=== PATIENT | male | born 1990 | race Caucasian/White ===

== ENCOUNTER 2017-01-06 23:46 | Emergency (ER) | payer SELFPAY ==
[~2017-01-06] VITALS: Ht 180.3 cm; Wt 92.4 kg
[~2017-01-06 23:46] MED LIST: IBUP800T23 PO; METH750T2 PO
[2017-01-06 23:54] VITALS: BP 133/82; PULSE 88; RESP 14; TEMP 98.1; O2SAT 98
[2017-01-07] MEDS ORDERED: IBUP800T23 PO (00:16)
[2017-01-07 00:35] VITALS: BP 177/109
--- NOTE | 2017-01-07 00:42 | PD ---
HPI Chief Complaint: Cold / Flu Symptoms Time Seen by Provider: 00:27 Travel History International Travel<30 days: No Contact w/Intl Traveler<30days: No Traveled to known affect area: No History of Present Illness HPI 26-year-old male presents to the emergency department for complaint of sore throat fever and cough. Patient states he's had respiratory illness symptoms for the past 2-3 days but today symptoms worsened and noted temperature of 10 1 F at work. Patient took 800 mg of ibuprofen around 5 PM. Patient denies other concerns or complaints. Patient denies any chronic medical conditions. Patient is status post tympanostomy in childhood. The patient rates history of pain 7/10 intensity with swallowing. No stridor no hoarseness. PFSH Past Medical History Narrative Medical ADHD and bipolar disorder anxiety depression; tympanostomy; tobacco use, prior substance use; nursing notes reviewed ADD: Yes ADHD: Yes Arthritis: No Asthma: Yes Autoimmune Disease: No Blood Disorders: No Bipolar Disorder: Yes Anxiety: Yes Depression: Yes Heart Rhythm Problems: No Cardiovascular Problems: No High Cholesterol: No Chest Pain: No Congestive Heart Failure: No COPD: No Cerebrovascular Accident: No Diminished Hearing: No Gastrointestinal Disorders: No GERD: No Genitourinary: No Headaches: No Hiatal Hernia: No Hypertension: No Kidney Stones: No Musculoskeletal: No Neurologic: No Psychiatric: Yes (SUBSTANCE ABUSE in past) Reproductive: No Respiratory: Yes Immunizations Current: Yes Migraines: No Renal Failure: No Schizophrenia: Yes Seizures: No Sickle Cell Disease: No Sleep Apnea: No Ulcer: No Tetanus Vaccination: < 5 Years Influenza Vaccination: No PNEUMOCCOCAL Vaccine (Year): 2 Past Surgical History Abdominal Surgery: No Cardiac Surgery: No Ear Surgery: Yes (TUBES IN EARS AGE 6) Endocrine Surgery: No Eye Surgery: No Genitourinary Surgery: No Gynecologic Surgery: No Neurologic Surgery: No Oral Surgery: No Thoracic Surgery: No Tympanostomy Tube: Yes Other Surgery: Yes (PE TUBES INSERTED WHEN HE WAS [age] YRS. OLD) Social History Alcohol Use: No Tobacco Use: Yes (1/2 ppd) Substance Use: No (HX CRACK COCAINE (DENIES USE 03/21/16)) Allergies-Medications (Allergen,Severity, Reaction): Coded Allergies: Penicillin (Verified Allergy, Mild, Hives, 01/07/17) Per pt, he is allergic to PCN. Reported Meds & Prescriptions Reported Meds & Active Scripts Active Zithromax Z-Anil (Azithromycin) 250 Mg Dspk 250 Mg PO DIRECTED 500 MG (2 tabs) day 1, then 1 tab days 2-5. Reported Ibuprofen 800 Mg Tab 800 Mg PO Q6HR PRN Review of Systems Except as stated in HPI: all other systems reviewed are Neg General / Constitutional: Positive: Fever HENT: Positive: Congestion Cardiovascular: No: Chest Pain or Discomfort Respiratory: Positive: Cough, No: Shortness of Breath Gastrointestinal: No: Vomiting, Abdominal Pain Genitourinary: No: Flank Pain Musculoskeletal: No: Myalgias, Arthralgias Skin: No Rash Neurologic: No: Weakness Psychiatric: No: Anxiety Hematologic/Lymphatic: No: Lymph Node Enlargement Physical Exam Narrative GENERAL: Well-developed well-nourished male in no acute distress no respiratory distress; no stridor or hoarseness. SKIN: Warm and dry. HEAD: Normocephalic. EYES: No scleral icterus. No injection or drainage. ENT: Airway is patent, mucous membranes moist, tonsillar edema with exudative change; tympanic membranes no redness dullness or loss of landmarks. NECK: Supple, trachea midline. No JVD or lymphadenopathy. CARDIOVASCULAR: Regular rate and rhythm without murmurs, gallops, or rubs. RESPIRATORY: Breath sounds equal bilaterally. No accessory muscle use. GASTROINTESTINAL: Abdomen soft, non-tender, nondistended. MUSCULOSKELETAL: No cyanosis, or edema. BACK: Nontender without obvious deformity. No CVA tenderness. Data Data Last Documented VS Vital Signs Date Time Temp Pulse Resp B/P Pulse Ox O2 Delivery O2 Flow Rate FiO2 01/07/17 00:35 177/109 01/06/17 23:54 98.1 88 14 98 Orders Group A Rapid Strep Screen (01/07/17 00:27) Strep Culture (Group A) (01/07/17 00:38) Azithromycin (Zithromax) (01/07/17 01:15) Ibuprofen (Motrin) (01/07/17 01:15) MDM Medical Decision Making Medical Screen Exam Complete: Yes Emergency Medical Condition: Yes Medical Record Reviewed: Yes Interpretation(s) RSA: negative Differential Diagnosis Upper respiratory infection, tonsillitis, pharyngitis, sinusitis, bronchitis, pneumonia Narrative Course Triage vital signs and normal range; patient with abnormal tonsil exam rapid strep antigen and specimen collected Patient informed of negative strep test; patient with febrile illness with tonsillitis will start on oral antibiotic patient given first dose of antibiotic along with weight-based ibuprofen in the emergency department. Patient is stable for outpatient management. Diagnosis Primary Impression: Tonsillitis Referrals: Primary Care Physician call for appointment Patient Instructions: General Instructions Departure Forms: Tests/Procedures, Work Release Special Instructions: No work times one day Additional Instructions: Complete course of antibiotic as prescribed Take acetaminophen/Tylenol every 4 hours as needed for fever 100.4F or greater Take ibuprofen 600 mg as often as every 6 hours or ibuprofen 800 mg as often as every 8 hours for fever 100.4F or greater or for pain associated with inflammation Return to the emergency department for any concerns or change condition No work times one day Follow-up with primary care provider May use [id number] Chloraseptic spray, lozenges, or warm salt water gargles as needed for symptomatic relief Med/Other Pt SpecificInfo: Prescription(s) given Scripts Azithromycin (Zithromax Z-Anil)250 Mg [id number] Mg PO DIRECTED #1 DSPK Ref 0 500 MG (2 tabs) day 1, then 1 tab days 2-5. Prov:Lizette Harmon MD 01/07/17 Disposition: 01 DISCHARGE HOME Condition: Stable Lizette Harmon MD Jan 07, 2017 00:42
[2017-01-07] MEDS ORDERED: ZITHTAB PO (01:11)
[2017-01-07] MEDS ORDERED: IBUPROFEN 800 MG TAB PO ONE (01:15)
[2017-01-07] MEDS ORDERED: AZITHROMYCIN 250 MG TAB PO ONE (01:15)
== END 2017-01-07 01:37 | disposition home or self-care (01) ==
LOC: PHED 23:46
DX: J03.90 Acute tonsillitis, unspecified (principal); J45.909 Unspecified asthma, uncomplicated; F17.210 Nicotine dependence, cigarettes, uncomplicated
CPT/HCPCS: 87081; 87880; 99283

== ENCOUNTER 2017-03-18 12:44 | Emergency (ER) | payer SELFPAY ==
[~2017-03-18] VITALS: Ht 180.3 cm; Wt 90.0 kg
[~2017-03-18 12:44] MED LIST changes: -METH750T2 PO; +ZITHTAB PO
[2017-03-18 12:48] VITALS: BP 129/69; PULSE 82; RESP 18; TEMP 98.3; O2SAT 100
[2017-03-18 13:11] VITALS: O2SAT 99
[2017-03-18] MEDS ORDERED: SODIUM CHLORIDE 0.9% FLUSH 10 ML FLUSH IVF PRN (13:15)
[2017-03-18] MEDS ORDERED: KETOROLAC TROMETHAMINE 30 MG/ML (IVP) VIAL IV PUSH ONE (13:15)
[2017-03-18] MEDS ORDERED: SODIUM CHLOR 0.9% 1000 ML INJ 1,000 ML IV ONE ×2 (13:15→14:45)
--- NOTE | 2017-03-18 13:17 | PD ---
HPI Chief Complaint: Chest Pain Time Seen by Provider: 12:59 Travel History International Travel<30 days: No Contact w/Intl Traveler<30days: No Traveled to known affect area: No History of Present Illness HPI Patient is 26-year-old male who presents to emergency room with complaints of chest pain. Patient reports that for the past few days, he has been having right-sided sharp stabbing chest pain. Reports that pain is located to his lateral right ribs, reports that pain is sharp and stabbing in nature. Patient reports that when he has to symptoms, his symptoms last for about 15 minutes and then resolve on its own. Reports that symptoms are exacerbated by taking deep breaths. Patient reports that nothing makes his chest pain better, reports shortness of breath with this chest pain. Denies any diaphoresis, nausea or vomiting or palpitations. Patient denies history of coronary artery disease, FL, hypertension, hyperlipidemia. Denies any drug abuse, denies any recent use of cocaine, denies early family history of coronary artery disease. Patient denies any recent illness. Patient reports that his symptoms are also exacerbated today as he works in a very hot factory - reports that it was hard for him to catch his breath today. Denies history of PE/DVT. Patient is a smoker PFS Past Medical History ADD: Yes ADHD: Yes Arthritis: No Asthma: Yes Autoimmune Disease: No Blood Disorders: No Bipolar Disorder: Yes Anxiety: Yes Depression: Yes Heart Rhythm Problems: No Cardiovascular Problems: No High Cholesterol: No Chest Pain: No Congestive Heart Failure: No COPD: No Cerebrovascular Accident: No Diminished Hearing: No Gastrointestinal Disorders: No GERD: No Genitourinary: No Headaches: No Hiatal Hernia: No Hypertension: No Kidney Stones: No Musculoskeletal: No Neurologic: No Psychiatric: Yes (SUBSTANCE ABUSE in past) Reproductive: No Respiratory: Yes Immunizations Current: Yes Migraines: No Renal Failure: No Schizophrenia: Yes Seizures: No Sickle Cell Disease: No Sleep Apnea: No Ulcer: No PNEUMOCCOCAL Vaccine (Year): 2 Past Surgical History Abdominal Surgery: No Cardiac Surgery: No Ear Surgery: Yes (TUBES IN EARS AGE 6) Endocrine Surgery: No Eye Surgery: No Genitourinary Surgery: No Gynecologic Surgery: No Neurologic Surgery: No Oral Surgery: No Thoracic Surgery: No Tympanostomy Tube: Yes Other Surgery: Yes (PE TUBES INSERTED WHEN HE WAS [age] YRS. OLD) Social History Alcohol Use: No Tobacco Use: Yes (1/2 ppd) Substance Use: No (HX CRACK COCAINE (DENIES USE 03/21/16)) Allergies-Medications (Allergen,Severity, Reaction): Coded Allergies: penicillin G (Verified Allergy, Mild, Hives, 03/18/17) Per pt, he is allergic to PCN. Reported Meds & Prescriptions Reported Meds & Active Scripts Active Ibuprofen 600 Mg Tab 600 Mg PO Q6H PRN Review of Systems General / Constitutional: No: Fever, Chills Eyes: No: Visual changes HENT: No: Headaches Cardiovascular: Positive: Chest Pain or Discomfort, Palpitations, Tachycardia Respiratory: Positive: Shortness of Breath, No: Wheezing, Sneezing Gastrointestinal: No: Abdominal Pain Genitourinary: No: Dysuria Musculoskeletal: No: Pain Skin: No Rash Neurologic: No: Weakness Psychiatric: No: Depression Endocrine: No: Polydipsia Hematologic/Lymphatic: No: Easy Bruising Physical Exam Narrative GENERAL: mild distress SKIN: Focused skin assessment warm/dry. HEAD: Atraumatic. Normocephalic. EYES: Pupils equal and round. No scleral icterus. No injection or drainage. ENT: No nasal bleeding or discharge. Mucous membranes pink and moist. NECK: Trachea midline. No JVD. CARDIOVASCULAR: Regular rate and rhythm. No murmur appreciated. RESPIRATORY: No accessory muscle use. Clear to auscultation. Breath sounds equal bilaterally. GASTROINTESTINAL: Abdomen soft, non-tender, nondistended. Hepatic and splenic margins not palpable. MUSCULOSKELETAL: No obvious deformities. No clubbing. No cyanosis. No edema. NEUROLOGICAL: Awake and alert. No obvious cranial nerve deficits. Motor grossly within normal limits. Normal speech. PSYCHIATRIC: Appropriate mood and affect; insight and judgment normal. Data Data Last Documented VS Vital Signs Date Time Temp Pulse Resp B/P Pulse Ox O2 Delivery O2 Flow Rate FiO2 03/18/17 14:50 61 16 128/74 98 Room Air 03/18/17 12:48 98.3 Orders Ckmb (Isoenzyme) Profile (03/18/17 13:05) Complete Blood Count With Diff (03/18/17 13:05) Comprehensive Metabolic Panel (03/18/17 13:05) D-Dimer (03/18/17 13:05) Magnesium (Mg) (03/18/17 13:05) Prothrombin Time / Inr (Pt) (03/18/17 13:05) Act Partial Throm Time (Ptt) (03/18/17 13:05) Troponin I (03/18/17 13:05) Chest, Single Ap (03/18/17 13:05) Ecg Monitoring (03/18/17 13:05) Iv Access Insert/Monitor (03/18/17 13:05) Oximetry (03/18/17 13:05) Sodium Chloride 0.9% Flush (Ns Flush) (03/18/17 13:15) Drug Screen, Random Urine (03/18/17 13:05) Ketorolac Inj (Toradol Inj) (03/18/17 13:15) Sodium Chlor 0.9% 1000 Ml Inj (Ns 1000 M (03/18/17 13:15) Thyroid Stimulating Hormone (03/18/17 13:05) CKMB (03/18/17 12:58) CKMB% (03/18/17 12:58) Electrocardiogram (03/18/17 ) Sodium Chlor 0.9% 1000 Ml Inj (Ns 1000 M (03/18/17 14:45) Acetaminophen (Tylenol) (03/18/17 14:45) Labs Laboratory Tests Test 03/18/17 03/18/17 12:58 13:50 White Blood Count 5.9 TH/MM3 Red Blood Count 4.48 MIL/MM3 Hemoglobin 13.9 GM/DL Hematocrit 40.7 % Mean Corpuscular Volume 90.7 FL Mean Corpuscular Hemoglobin 31.1 PG Mean Corpuscular Hemoglobin 34.3 % Concent Red Cell Distribution Width 11.9 % Platelet Count 245 TH/MM3 Mean Platelet Volume 7.9 FL Neutrophils (%) (Auto) 47.6 % Lymphocytes (%) (Auto) 40.2 % Monocytes (%) (Auto) 10.7 % Eosinophils (%) (Auto) 1.4 % Basophils (%) (Auto) 0.1 % Neutrophils # (Auto) 2.8 TH/MM3 Lymphocytes # (Auto) 2.4 TH/MM3 Monocytes # (Auto) 0.6 TH/MM3 Eosinophils # (Auto) 0.1 TH/MM3 Basophils # (Auto) 0.0 TH/MM3 CBC Comment DIFF FINAL Differential Comment Prothrombin Time 11.1 SEC Prothromb Time International 1.0 RATIO Ratio Activated Partial 30.5 SEC Thromboplast Time D-Dimer Quantitative (PE/DVT) 0.23 MG/L FEU Sodium Level 140 MEQ/L Potassium Level 3.7 MEQ/L Chloride Level 106 MEQ/L Carbon Dioxide Level 26.1 MEQ/L Anion Gap 8 MEQ/L Blood Urea Nitrogen 17 MG/DL Creatinine 0.99 MG/DL Estimat Glomerular Filtration 92 ML/MIN Rate Random Glucose 88 MG/DL Calcium Level 8.7 MG/DL Magnesium Level 2.1 MG/DL Total Bilirubin 0.9 MG/DL Aspartate Amino Transf 29 U/L (AST/SGOT) Alanine Aminotransferase 32 U/L (ALT/SGPT) Alkaline Phosphatase 108 U/L Total Creatine Kinase 378 U/L Creatine Kinase MB 5.1 NG/ML Creatine Kinase MB % 1.3 % Troponin I LESS THAN 0.02 NG/ML Total Protein 7.5 GM/DL Albumin 4.1 GM/DL Thyroid Stimulating Hormone 1.660 uIU/ML 3rd Gen Urine Opiates Screen NEG Urine Barbiturates Screen NEG Urine Amphetamines Screen NEG Urine Benzodiazepines Screen NEG Urine Cocaine Screen NEG Urine Cannabinoids Screen NEG [facility] Medical Decision Making Medical Screen Exam Complete: Yes Emergency Medical Condition: Yes Interpretation(s) EKG at 1256: NSR at 79bpm, qt/qtc: 353/387, no acute st or t wave changes repeat ekg at 1438: Sinus rodolfo at 56bpm, qt/qtc: 409/401, no acute st or t wave changes Vital Signs Date Time Temp Pulse Resp B/P Pulse Ox O2 Delivery O2 Flow Rate FiO2 03/18/17 13:03 74 98 Room Air 03/18/17 12:48 98.3 82 18 129/69 100 Laboratory Tests Test 03/18/17 03/18/17 12:58 13:50 White Blood Count 5.9 TH/MM3 (4.0-11.0) Red Blood Count 4.48 MIL/MM3 (4.50-5.90) Hemoglobin 13.9 GM/DL (13.0-17.0) Hematocrit 40.7 % (39.0-51.0) Mean Corpuscular Volume 90.7 FL (80.0-100.0) Mean Corpuscular Hemoglobin 31.1 PG (27.0-34.0) Mean Corpuscular Hemoglobin 34.3 % Concent (32.0-36.0) Red Cell Distribution Width 11.9 % (11.6-17.2) Platelet Count 245 TH/MM3 (150-450) Mean Platelet Volume 7.9 FL (7.0-11.0) Neutrophils (%) (Auto) 47.6 % (16.0-70.0) Lymphocytes (%) (Auto) 40.2 % (9.0-44.0) Monocytes (%) (Auto) 10.7 % (0.0-8.0) Eosinophils (%) (Auto) 1.4 % (0.0-4.0) Basophils (%) (Auto) 0.1 % (0.0-2.0) Neutrophils # (Auto) 2.8 TH/MM3 (1.8-7.7) Lymphocytes # (Auto) 2.4 TH/MM3 (1.0-4.8) Monocytes # (Auto) 0.6 TH/MM3 (0-0.9) Eosinophils # (Auto) 0.1 TH/MM3 (0-0.4) Basophils # (Auto) 0.0 TH/MM3 (0-0.2) CBC Comment DIFF FINAL Differential Comment Prothrombin Time 11.1 SEC (9.8-11.6) Prothromb Time International 1.0 RATIO Ratio Activated Partial 30.5 SEC Thromboplast Time (24.3-30.1) D-Dimer Quantitative (PE/DVT) 0.23 MG/L FEU (0.00-0.50) Sodium Level 140 MEQ/L (136-145) Potassium Level 3.7 MEQ/L (3.5-5.1) Chloride Level 106 MEQ/L (98-107) Carbon Dioxide Level 26.1 MEQ/L (21.0-32.0) Anion Gap 8 MEQ/L (5-15) Blood Urea Nitrogen 17 MG/DL (7-18) Creatinine 0.99 MG/DL (0.60-1.30) Estimat Glomerular Filtration 92 ML/MIN (>89) Rate Random Glucose 88 MG/DL (74-106) Calcium Level 8.7 MG/DL (8.5-10.1) Magnesium Level 2.1 MG/DL (1.5-2.5) Total Bilirubin 0.9 MG/DL (0.2-1.0) Aspartate Amino Transf 29 U/L (15-37) (AST/SGOT) Alanine Aminotransferase 32 U/L (12-78) (ALT/SGPT) Alkaline Phosphatase 108 U/L (45-117) Total Creatine Kinase 378 U/L (39-308) Creatine Kinase MB 5.1 NG/ML (0.5-3.6) Creatine Kinase MB % 1.3 % (0.0-4.0) Troponin I LESS THAN 0.02 NG/ML (0.02-0.05) Total Protein 7.5 GM/DL (6.4-8.2) Albumin 4.1 GM/DL (3.4-5.0) Thyroid Stimulating Hormone 1.660 uIU/ML 3rd Gen (0.358-3.740) Urine Opiates Screen NEG (NEG) Urine Barbiturates Screen NEG (NEG) Urine Amphetamines Screen NEG (NEG) Urine Benzodiazepines Screen NEG (NEG) Urine Cocaine Screen NEG (NEG) Urine Cannabinoids Screen NEG (NEG) Last Impressions Chest X-Ray 03/18/17 1305 Signed Impressions: Service Date/Time: Saturday, March 18, 2017 13:15 - CONCLUSION: 1. Mild cardiomegaly. 2. No focal pulmonary infiltrate or pulmonary vascular congestion. Ryan Hoffman MD Differential Diagnosis Differential includes ACS, arrhythmia, PE, costochondritis, endocarditis, pericarditis, electrolyte abnormality, pneumothorax, rhabdomyolysis Narrative Course Patient is a 26-year-old male who presents to emergency with complaints of chest pain. Patient reports that chest pain has been intermittent in nature for the past few days, reports the pain is worse in his right lateral chest and is exacerbated by deep breath. Patient reports that chest pain is pleuritic in nature. Patient was placed on a bolt sawyer upon arrival to the emergency room. EKG was obtained, patient with no acute ST-T wave changes on his EKG. Lab work including one set of cardiac enzymes ordered - 1 set of cardiac enzymes ordered to evaluate for infective etiology of chest pain including but not limited to endocarditis/pericarditis, it was not ordered to evaluate for ACS. Xray of chest ordered to evaluate for possible pneumothorax. D-dimer ordered to evaluate possible PE though patient is low risk for PE Plan to treat patient's chest pain with IV Toradol, will continue to monitor on a bolt sawyer. 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 Mild cardiomegaly. 2. No focal pulmonary infiltrate or pulmonary vascular congestion. Ryan Hoffman MD Patient feeling better at this time, repeat EKG with no acute ST-T wave changes. Patient with most likely costochondritis as well as rhabdomyolysis as there is no air conditioner at his job and he works in a "very hot factory." Encouraged patient to drink plenty of fluids, he will follow up with his primary care doctor and will return to emergency room as needed. Diagnosis Primary Impression: Chest pain Additional Impressions: Costochondritis, acute Rhabdomyolysis Patient Instructions: General Instructions Additional Instructions: Please follow up with your primary care doctor Please return to ER as needed or if symptoms worsen or persist Please stop smoking cigarettes Med/Other Pt SpecificInfo: Prescription(s) given Scripts Ibuprofen 600 Mg [id number] Mg PO Q6H PRN (Pain/Inflammation) #40 TAB Ref 0 Prov:Aster Iverson DO 03/18/17 Aster Iverson DO Mar 18, 2017 13:17
[2017-03-18 13:24] LABS: AUTOMATED NEUTROPHIL # 2.8 TH/MM3 (1.8-7.7); BASOPHIL % 0.1 % (0.0-2.0); EOSINOPHIL # 0.1 TH/MM3 (0-0.4); EOSINOPHIL % 1.4 % (0.0-4.0); HEMATOCRIT 40.7 % (39.0-51.0); HEMO FLAGS DIFF FINAL; LYMPH % 40.2 % (9.0-44.0); LYMPHOCYTE # 2.4 TH/MM3 (1.0-4.8); MEAN CELL VOLUME 90.7 FL (80.0-100.0); MEAN CORPUSCULAR HEMOGLOBIN 31.1 PG (27.0-34.0); MEAN CORPUSCULAR HGB CONC 34.3 % (32.0-36.0); MONO % 10.7 % (0.0-8.0); NEUT % 47.6 % (16.0-70.0); PLATELET COUNT 245 TH/MM3 (150-450); RED BLOOD COUNT 4.48 MIL/MM3 (4.50-5.90); RED CELL DISTRIBUTION WIDTH 11.9 % (11.6-17.2); WHITE BLOOD COUNT 5.9 TH/MM3 (4.0-11.0)
[2017-03-18 13:33] LABS: CHLORIDE 106 MEQ/L (98-107); POTASSIUM 3.7 MEQ/L (3.5-5.1); SODIUM (NA) 140 MEQ/L (136-145)
[2017-03-18 13:36] LABS: ANION GAP 8 MEQ/L (5-15); BICARBONATE 26.1 MEQ/L (21.0-32.0); BLOOD UREA NITROGEN 17 MG/DL (7-18); MAGNESIUM 2.1 MG/DL (1.5-2.5)
[2017-03-18 13:39] LABS: ALT (GPT) 32 U/L (12-78); APTT (PATIENT) 30.5 SEC (24.3-30.1); PROTHROMBIN TIME - PATIENT 11.1 SEC (9.8-11.6)
[2017-03-18 13:40] LABS: AST (GOT) 29 U/L (15-37); GLOMERULAR FILTRATION RATE 92 ML/MIN (>89)
[2017-03-18 13:41] LABS: TOTAL BILIRUBIN ADULT 0.9 MG/DL (0.2-1.0)
[2017-03-18 13:42] LABS: ALKALINE PHOSPHATASE 108 U/L (45-117); CREATINE KINASE 378 U/L (39-308)
[2017-03-18] MEDS ORDERED: IBUP-232 PO (13:51)
[2017-03-18 13:54] LABS: CKMB 5.1 NG/ML (0.5-3.6)
--- NOTE | 2017-03-18 14:15 | RADRPT ---
EXAM DATE/TIME: 03/18/2017 13:15 [facility] COMPARISON: CHEST SINGLE AP, January 13, 2016, 5:01. INDICATIONS : Chest pain, right arm numbness. MEDICAL HISTORY : Asthma. UTI. SURGICAL HISTORY : Tympanostomy tubes. ENCOUNTER: Initial ACUITY: 3 days PAIN SCORE: 10/10 LOCATION: Right chest FINDINGS: The heart remains mildly enlarged. The pulmonary vascular pattern is normal. The lungs are clear. CONCLUSION: 1. Mild cardiomegaly. 2. No focal pulmonary infiltrate or pulmonary vascular congestion. Ryan Hoffman MD on March 18, 2017 at 14:12 Board Certified Radiologist. This report was verified electronically.
[2017-03-18] MEDS ORDERED: ACETAMINOPHEN 325 MG TAB PO ONE (14:45)
[2017-03-18 14:50] VITALS: BP 128/74; PULSE 61; RESP 16; O2SAT 98
[2017-03-18 16:04] VITALS: BP 135/70
--- NOTE | 2017-03-20 08:56 | EKG ---
Date Performed: 03/18/2017 Time Performed: 14:38:01 PTAGE: 26 years EKG: SINUS BRADYCARDIA BORDERLINE ECG PREVIOUS TRACING : 03/18/2017 12.56 Compared to prior tracing no significant change DOCTOR: Lawson Lam Interpretating Date/Time 03/20/2017 08:53:23
--- NOTE | 2017-03-20 09:01 | EKG ---
Date Performed: 03/18/2017 Time Performed: 12:56:48 PTAGE: 26 years EKG: Sinus rhythm WITH SINUS ARRHYTHMIA NORMAL ECG INTERPRETATION BASED ON A DEFAULT AGE OF 40 YEARS PREVIOUS TRACING : 01/13/2016 04.43 Compared to prior tracing no significant change DOCTOR: Lawson Lam Interpretating Date/Time 03/20/2017 08:56:37
== END 2017-03-18 16:12 | disposition home or self-care (01) ==
LOC: PHED 12:44
DX: R07.9 Chest pain, unspecified (principal); M94.0 Chondrocostal junction syndrome [Tietze]; M62.82 Rhabdomyolysis; I51.7 Cardiomegaly; F31.9 Bipolar disorder, unspecified; F20.9 Schizophrenia, unspecified; F17.210 Nicotine dependence, cigarettes, uncomplicated; R20.0 Anesthesia of skin; R00.1 Bradycardia, unspecified
CPT/HCPCS: 71010; 80053; 80307; 82550; 82552; 83735; 84443; 84484; 85025; 85379; 85610; 85730; 93005; 96374; 99285; J1885; J7030

== ENCOUNTER 2017-04-23 20:48 | Emergency (ER) | payer OTHER ==
[~2017-04-23] VITALS: Ht 177.8 cm; Wt 100.0 kg
[~2017-04-23 20:48] MED LIST changes: +IBUP-232 PO; -IBUP800T23 PO; -ZITHTAB PO
[2017-04-23 21:22] VITALS: BP 128/90; PULSE 93; RESP 16; TEMP 98.1; O2SAT 98
[2017-04-23 21:48] VITALS: BP 123/67; PULSE 78; RESP 16
[2017-04-23 22:30] LABS: AUTOMATED NEUTROPHIL # 4.9 TH/MM3 (1.8-7.7); BASOPHIL % 0.3 % (0.0-2.0); EOSINOPHIL # 0.1 TH/MM3 (0-0.4); HEMATOCRIT 42.6 % (39.0-51.0); HEMO FLAGS DIFF FINAL; LYMPH % 32.1 % (9.0-44.0); LYMPHOCYTE # 2.8 TH/MM3 (1.0-4.8); MEAN CORPUSCULAR HEMOGLOBIN 31.3 PG (27.0-34.0); MONO % 10.1 % (0.0-8.0); NEUT % 56.5 % (16.0-70.0); PLATELET COUNT 274 TH/MM3 (150-450); RED BLOOD COUNT 4.63 MIL/MM3 (4.50-5.90); WHITE BLOOD COUNT 8.7 TH/MM3 (4.0-11.0)
[2017-04-23 22:36] LABS: ALT (GPT) 42 U/L (12-78); ANION GAP 8 MEQ/L (5-15); AST (GOT) 42 U/L (15-37); BICARBONATE 26.4 MEQ/L (21.0-32.0); BLOOD UREA NITROGEN 12 MG/DL (7-18); CHLORIDE 105 MEQ/L (98-107); GLOMERULAR FILTRATION RATE 98 ML/MIN (>89); POTASSIUM 3.6 MEQ/L (3.5-5.1); SODIUM (NA) 139 MEQ/L (136-145)
[2017-04-23 22:37] LABS: ALKALINE PHOSPHATASE 82 U/L (45-117); TOTAL BILIRUBIN ADULT 1.9 MG/DL (0.2-1.0)
[2017-04-23] MEDS ORDERED: LORazepam 1 MG TAB PO ONE (22:45)
[2017-04-23 22:48] LABS: ACETAMINOPHEN LESS THAN 2.0 MCG/ML (10.0-30.0); ALCOHOL LESS THAN 3 MG/DL (0-5)
[2017-04-23] MEDS ORDERED: RISP4TAB41 PO (22:49)
[2017-04-23] MEDS ORDERED: CLON1 PO (22:49)
--- NOTE | 2017-04-23 22:52 | PD ---
HPI Chief Complaint: Psychiatric Symptoms Time Seen by Provider: 21:45 Travel History International Travel<30 days: No Contact w/Intl Traveler<30days: No Traveled to known affect area: No History of Present Illness HPI 27-year-old male that presents to the ED for evaluation of psychiatric evaluation. Patient was Cali acted by police after apparently he was found to be incoherent my police. Patient stated that he took Lilo and she wanted to kill himself by running into traffic. Patient states that he does not remember this. Per patient he does not do drugs. She does have a history of substance abuse from her medical records. He states that he is a history of schizophrenia and he supposed to be in medications for it. Per patient sometimes he does see things that are not there. He denies any injuries. No head injuries. No cuts. No other medical issues. Patient takes no medications at this time. Patient was brought here by police under a cali act. PFSH Past Medical History ADD: Yes ADHD: Yes Arthritis: No Asthma: Yes Autoimmune Disease: No Blood Disorders: No Bipolar Disorder: Yes Anxiety: Yes Depression: Yes Heart Rhythm Problems: No Cardiovascular Problems: No High Cholesterol: No Chest Pain: No Congestive Heart Failure: No COPD: No Cerebrovascular Accident: No Diminished Hearing: No Gastrointestinal Disorders: No GERD: No Genitourinary: No Headaches: No Hiatal Hernia: No Kidney Stones: No Musculoskeletal: No Neurologic: No Psychiatric: Yes (SUBSTANCE ABUSE in past) Reproductive: No Respiratory: Yes Immunizations Current: Yes Migraines: No Renal Failure: No Schizophrenia: Yes Seizures: No Sickle Cell Disease: No Sleep Apnea: No Ulcer: No Tetanus Vaccination: < 5 Years Influenza Vaccination: No PNEUMOCCOCAL Vaccine (Year): 2 Past Surgical History Ear Surgery: Yes (TUBES IN EARS AGE 6) Tympanostomy Tube: Yes Other Surgery: Yes (PE TUBES INSERTED WHEN HE WAS [age] YRS. OLD) Social History Alcohol Use: No Tobacco Use: Yes (08/05 pk) Substance Use: No (HX CRACK COCAINE (DENIES USE 03/21/16)) Allergies-Medications (Allergen,Severity, Reaction): Coded Allergies: penicillin G (Verified Allergy, Mild, Hives, 04/23/17) Per pt, he is allergic to PCN. Reported Meds & Prescriptions Reported Meds & Active Scripts Active Reported Klonopin (Clonazepam) 1 Mg Tab 1 Mg PO DAILY Risperdal (Risperidone) 4 Mg Tab 4 Mg PO HS Review of Systems Except as stated in HPI: all other systems reviewed are Neg Physical Exam Narrative GENERAL: SKIN: Warm and dry. HEAD: Atraumatic. Normocephalic. EYES: Pupils equal and round. No scleral icterus. No injection or drainage. ENT: No nasal bleeding or discharge. Mucous membranes pink and moist. Tongue is midline. No uvula deviation. NECK: Trachea midline. No JVD. CARDIOVASCULAR: Regular rate and rhythm. No murmurs, S3, S4. RESPIRATORY: No accessory muscle use. Clear to auscultation. Breath sounds equal bilaterally. GASTROINTESTINAL: Abdomen soft, non-tender, nondistended. Hepatic and splenic margins not palpable. MUSCULOSKELETAL: Extremities without clubbing, cyanosis, or edema. No obvious deformities. Full range of motion of the upper and lower extremities bilaterally. 2+ pulses bilaterally. Patient has a brace to the left wrist. NEUROLOGICAL: Awake and alert. No obvious cranial nerve deficits. Motor grossly within normal limits. Five out of 5 muscle strength in the arms and legs. Normal speech. PSYCHIATRIC: Anxious mood and affect; insight and judgment normal. Data Data Last Documented VS Vital Signs Date Time Temp Pulse Resp B/P (MAP) Pulse Ox O2 Delivery O2 Flow Rate FiO2 04/23/17 21:48 78 16 123/67 (85) 04/23/17 21:22 98.1 98 Orders Orders Complete Blood Count With Diff (04/23/17 21:43) Comprehensive Metabolic Panel (04/23/17 21:43) Urinalysis - C+S If Indicated (04/23/17 21:43) Psych Screen (04/23/17 21:43) Drug Screen, Random Urine (04/23/17 21:43) Alcohol (Ethanol) (04/23/17 21:43) Salicylates (Aspirin) (04/23/17 21:43) Tylenol (Acetaminophen) (04/23/17 21:43) ^ Sitter (04/23/17 21:48) Lorazepam (Ativan) (04/23/17 22:45) Labs Laboratory Tests Test 04/23/17 22:00 White Blood Count 8.7 TH/MM3 Red Blood Count 4.63 MIL/MM3 Hemoglobin 14.5 GM/DL Hematocrit 42.6 % Mean Corpuscular Volume 92.0 FL Mean Corpuscular Hemoglobin 31.3 PG Mean Corpuscular Hemoglobin Concent 34.0 % Red Cell Distribution Width 13.0 % Platelet Count 274 TH/MM3 Mean Platelet Volume 7.7 FL Neutrophils (%) (Auto) 56.5 % Lymphocytes (%) (Auto) 32.1 % Monocytes (%) (Auto) 10.1 % Eosinophils (%) (Auto) 1.0 % Basophils (%) (Auto) 0.3 % Neutrophils # (Auto) 4.9 TH/MM3 Lymphocytes # (Auto) 2.8 TH/MM3 Monocytes # (Auto) 0.9 TH/MM3 Eosinophils # (Auto) 0.1 TH/MM3 Basophils # (Auto) 0.0 TH/MM3 CBC Comment DIFF FINAL Differential Comment Blood Urea Nitrogen 12 MG/DL Creatinine 0.93 MG/DL Random Glucose 90 MG/DL Total Protein 7.7 GM/DL Albumin 4.3 GM/DL Calcium Level 8.9 MG/DL Alkaline Phosphatase 82 U/L Aspartate Amino Transf (AST/SGOT) 42 U/L Alanine Aminotransferase (ALT/SGPT) 42 U/L Total Bilirubin 1.9 MG/DL Sodium Level 139 MEQ/L Potassium Level 3.6 MEQ/L Chloride Level 105 MEQ/L Carbon Dioxide Level 26.4 MEQ/L Anion Gap 8 MEQ/L Estimat Glomerular Filtration Rate 98 ML/MIN Salicylates Level LESS THAN 1.7 MG/DL Acetaminophen Level LESS THAN 2.0 MCG/ML Ethyl Alcohol Level LESS THAN 3 MG/DL MDM Medical Decision Making Medical Screen Exam Complete: Yes Emergency Medical Condition: Yes Medical Record Reviewed: Yes Interpretation(s) CBC & BMP Diagram 04/23/17 22:00 Total Protein 7.7, Albumin 4.3, Calcium Level 8.9, Alkaline Phosphatase 82, Aspartate Amino Transf (AST/SGOT) 42 H, Alanine Aminotransferase (ALT/SGPT) 42, Total Bilirubin 1.9 H tox negative Differential Diagnosis Depression versus suicidal ideation versus anxiety versus adjustment disorder versus mood disorder versus bipolar disorder versus schizophrenia versus paranoid disorder versus psychosis versus substance abuse versus alcohol abuse versus alcohol induced psychosis versus homicidality addition versus cutting versus personality disorder Narrative Course 27-year-old male that presents to the ED for eval is an psychiatric illness. No sign of acute medical distress. Labs were drawn. Labs were essentially unremarkable. Patient will be medically clear. Okay to be seen by psych. There maximization patient states that he doesn't really remember what happened. He does state that he did took something but he initially told us that he took Mully but he states that he doesn't now. Patient does have a known history of substance abuse in her previous records. At this time patient was medically clear. Okay to be seen by psych. Mental health screening was discussed with the patient. Diagnosis Primary Impression: Drug-induced mood disorder Heriberto Carrillo Apr 23, 2017 22:52
[2017-04-23 23:06] VITALS: BP 128/82; PULSE 94; RESP 16; TEMP 98.3; O2SAT 99
[2017-04-24 06:00] VITALS: BP 101/59; PULSE 62; RESP 18; TEMP 98.5; O2SAT 99
[2017-04-24 08:36] LABS: BLOOD, URINE NEG (NEG); COMMENT (UR) CULT NOT INDICATED; CULTURE IF INDICATED CULT NOT INDICATED; GLUCOSE,URINE NEG (NEG); KETONE, URINE NEG (NEG); MUCUS URINE FEW /lpf (OCC); NITRITE,URINE NEG (NEG); URINE COLOR YELLOW (YELLW/STRAW)
--- NOTE | 2017-04-24 12:35 | PD ---
History of Present Illness Chief Complaint: Psychiatric Symptoms Time Seen by Provider: 12:15 Travel History International Travel<30 Days: No Contact w/Intl Traveler<30days: No Known affected area: No Legal Status Legal Status: Cali Act Cali Act Signed By: Emmanuel Echevraria History of Present Illness: History of Present Illness HPI 27-year-old male with history of substance use disorder that presents to the ED under a Cali act by police after apparently he was found to be incoherent by the police .The Cali act also alleges that he tried to walk in front of traffic Patient state that he took Mansi but that he does not remember any of the allegations on the Cali act. The patient was monitored in [facility] and presented no behavioral dysregulations and no suicidality. EMR reviewed. He has had several visits to ED for substance related issues. Current toxicology is negative for substances. Patient seen with nurse Laura. he is alert, oriented, cooperative. Speech is clear and logical. He denies experiencing any hallucinations, no delusions and no paranoia. He denies any suicidal or homicidal ideation, intent or plan. Admits to using Mansi prior to coming to hospital but states " It was supposed to be fun." he is currently not on psychiatric medications but reports he has been treated at [facility]. He is requesting discharge as he has to be present in court at 2:p m today. PFSH Past Medical History ADD: Yes ADHD: Yes Arthritis: No Asthma: Yes Autoimmune Disease: No Blood Disorders: No Bipolar Disorder: Yes Anxiety: Yes Depression: Yes Heart Rhythm Problems: No Cardiovascular Problems: No High Cholesterol: No Chest Pain: No Congestive Heart Failure: No COPD: No Cerebrovascular Accident: No Diminished Hearing: No Gastrointestinal Disorders: No GERD: No Genitourinary: No Headaches: No Hiatal Hernia: No Kidney Stones: No Musculoskeletal: No Neurologic: No Psychiatric: Yes (SUBSTANCE ABUSE in past) Reproductive: No Respiratory: Yes Immunizations Current: Yes Migraines: No Renal Failure: No Schizophrenia: Yes Seizures: No Sickle Cell Disease: No Sleep Apnea: No Ulcer: No Tetanus Vaccination: < 5 Years Influenza Vaccination: No PNEUMOCCOCAL Vaccine (Year): 2 Past Surgical History Ear Surgery: Yes (TUBES IN EARS AGE 6) Tympanostomy Tube: Yes Other Surgery: Yes (PE TUBES INSERTED WHEN HE WAS [age] YRS. OLD) Psychiatric History Psychiatric History Hx Psychiatric Treatment: HX: ADHD AND BIPOLAR DISORDER History of Inpatient Treatment: No Guns or firearms in home: No Social History . Lives with his . Unemployed Hx Alcohol Use: No Hx Tobacco Use: Yes (1 08/05 pk) Hx Substance Use: Yes Substance Use Type: Alcohol, Crack, Amphetamines-Stimulants, Prescription Medications, Benzos (Valium,Xanax), Cocaine Other Substances Used: BEGAN USING SUBSTANCES A TEENAGER. HX OF ALCOHOL, BENZOS , K2. Hx of Substance Use Treatment: No Family Psychiatric History Negative Allergies-Medications (Allergen,Severity, Reaction): Coded Allergies: penicillin G (Verified Allergy, Mild, Hives, 04/23/17) Per pt, he is allergic to PCN. Reported Meds & Prescriptions Reported Meds & Active Scripts Active Reported Klonopin (Clonazepam) 1 Mg Tab 1 Mg PO DAILY Risperdal (Risperidone) 4 Mg Tab 4 Mg PO HS Review of Systems Except as stated in HPI: all other systems reviewed are Neg Exam Alert: Yes [place]: Person (ox4) Mood: Calm Affect: Appropriate Speech: Clear, Logical Eye Contact: Normal Memory Intact: Comment (not impaired) Hallucinations: Other (Negative) Delusions: No Suicidal: Ideation (Negative) Homicidal: Ideation (Denies any) Insight/Judgement Fair. Not impaired MDM Medical Decision Making Medical Record Reviewed: Yes Assessment/Plan 27-year-old male that presents to the ED for evaluation of psychiatric evaluation. Patient was Cali acted by police after apparently he was found to be incoherent my police. Patient at this time is not suicidal , homicidal, not psychotic. States he took some mansi which caused him to " act crazy" He does not meet criteria for Cali act. Ba is lifted. Psychiatrically cleared for discharge. I have encouraged continued treatmetn at [facility] as well as abstinence from substances Orders Orders Complete Blood Count With Diff (04/23/17 21:43) Comprehensive Metabolic Panel (04/23/17 21:43) Urinalysis - C+S If Indicated (04/23/17 21:43) Psych Screen (04/23/17 21:43) Drug Screen, Random Urine (04/23/17 21:43) Alcohol (Ethanol) (04/23/17 21:43) Salicylates (Aspirin) (04/23/17 21:43) Tylenol (Acetaminophen) (04/23/17 21:43) ^ Sitter (04/23/17 21:48) Lorazepam (Ativan) (04/23/17 22:45) Diet Regular Basic (04/24/17 Breakfast) Diet Regular Basic (04/24/17 Lunch) Results Vital Signs Date Time Temp Pulse Resp B/P (MAP) Pulse Ox O2 Delivery O2 Flow Rate FiO2 04/24/17 06:00 98.5 62 18 101/59 (73) 99 Room Air 04/23/17 23:06 98.3 94 16 128/82 (97) 99 Room Air 04/23/17 21:48 78 16 123/67 (85) 04/23/17 21:22 98.1 93 16 128/90 (103) 98 Laboratory Tests Test 04/23/17 22:00 04/24/17 08:10 White Blood Count 8.7 Red Blood Count 4.63 Hemoglobin 14.5 Hematocrit 42.6 Mean Corpuscular Volume 92.0 Mean Corpuscular Hemoglobin 31.3 Mean Corpuscular Hemoglobin Concent 34.0 Red Cell Distribution Width 13.0 Platelet Count 274 Mean Platelet Volume 7.7 Neutrophils (%) (Auto) 56.5 Lymphocytes (%) (Auto) 32.1 Monocytes (%) (Auto) 10.1 Eosinophils (%) (Auto) 1.0 Basophils (%) (Auto) 0.3 Neutrophils # (Auto) 4.9 Lymphocytes # (Auto) 2.8 Monocytes # (Auto) 0.9 Eosinophils # (Auto) 0.1 Basophils # (Auto) 0.0 CBC Comment DIFF FINAL Differential Comment Blood Urea Nitrogen 12 Creatinine 0.93 Random Glucose 90 Total Protein 7.7 Albumin 4.3 Calcium Level 8.9 Alkaline Phosphatase 82 Aspartate Amino Transf (AST/SGOT) 42 Alanine Aminotransferase (ALT/SGPT) 42 Total Bilirubin 1.9 Sodium Level 139 Potassium Level 3.6 Chloride Level 105 Carbon Dioxide Level 26.4 Anion Gap 8 Estimat Glomerular Filtration Rate 98 Salicylates Level LESS THAN 1.7 Acetaminophen Level LESS THAN 2.0 Ethyl Alcohol Level LESS THAN 3 Urine Color YELLOW Urine Turbidity CLEAR Urine pH 6.0 Urine Specific [place] 1.021 Urine Protein TRACE Urine Glucose (UA) NEG Urine Ketones NEG Urine Occult Blood NEG Urine Nitrite NEG Urine Bilirubin NEG Urine Urobilinogen LESS THAN 2.0 Urine Leukocyte Esterase NEG Urine RBC 1 Urine WBC 1 Urine Mucus FEW Microscopic Urinalysis Comment CULT NOT INDICATED Urine Opiates Screen NEG Urine Barbiturates Screen NEG Urine Amphetamines Screen NEG Urine Benzodiazepines Screen NEG Urine Cocaine Screen NEG Urine Cannabinoids Screen NEG Diagnosis Primary Impression: Substance use disorder Psychiatrically Cleared: Yes Med/ Other Pt Specific Info: No Meds Exist/No RX given Disposition: DISCHARGE HOME Condition: Stable Mayuri Adamson [facility] Apr 24, 2017 12:35
--- NOTE | 2017-04-24 12:37 | PD ---
Physical Exam Narrative I was asked by the psychiatric department to discharge patient has patient was cleared and Cali lifted by psych. Patient was medically cleared by previous provider. Please see their documentation for full H&P. Patient denies any medical complaints at this time. Denies any homicidal or suicidal ideations. Data Data Last Documented VS Vital Signs Date Time Temp Pulse Resp B/P (MAP) Pulse Ox O2 Delivery O2 Flow Rate FiO2 04/24/17 06:00 98.5 62 18 101/59 (73) 99 Room Air Orders Orders Complete Blood Count With Diff (04/23/17 21:43) Comprehensive Metabolic Panel (04/23/17 21:43) Urinalysis - C+S If Indicated (04/23/17 21:43) Psych Screen (04/23/17 21:43) Drug Screen, Random Urine (04/23/17 21:43) Alcohol (Ethanol) (04/23/17 21:43) Salicylates (Aspirin) (04/23/17 21:43) Tylenol (Acetaminophen) (04/23/17 21:43) ^ Sitter (04/23/17 21:48) Lorazepam (Ativan) (04/23/17 22:45) Diet Regular Basic (04/24/17 Breakfast) Diet Regular Basic (04/24/17 Lunch) Labs Laboratory Tests Test 04/23/17 22:00 04/24/17 08:10 White Blood Count 8.7 TH/MM3 Red Blood Count 4.63 MIL/MM3 Hemoglobin 14.5 GM/DL Hematocrit 42.6 % Mean Corpuscular Volume 92.0 FL Mean Corpuscular Hemoglobin 31.3 PG Mean Corpuscular Hemoglobin Concent 34.0 % Red Cell Distribution Width 13.0 % Platelet Count 274 TH/MM3 Mean Platelet Volume 7.7 FL Neutrophils (%) (Auto) 56.5 % Lymphocytes (%) (Auto) 32.1 % Monocytes (%) (Auto) 10.1 % Eosinophils (%) (Auto) 1.0 % Basophils (%) (Auto) 0.3 % Neutrophils # (Auto) 4.9 TH/MM3 Lymphocytes # (Auto) 2.8 TH/MM3 Monocytes # (Auto) 0.9 TH/MM3 Eosinophils # (Auto) 0.1 TH/MM3 Basophils # (Auto) 0.0 TH/MM3 CBC Comment DIFF FINAL Differential Comment Blood Urea Nitrogen 12 MG/DL Creatinine 0.93 MG/DL Random Glucose 90 MG/DL Total Protein 7.7 GM/DL Albumin 4.3 GM/DL Calcium Level 8.9 MG/DL Alkaline Phosphatase 82 U/L Aspartate Amino Transf (AST/SGOT) 42 U/L Alanine Aminotransferase (ALT/SGPT) 42 U/L Total Bilirubin 1.9 MG/DL Sodium Level 139 MEQ/L Potassium Level 3.6 MEQ/L Chloride Level 105 MEQ/L Carbon Dioxide Level 26.4 MEQ/L Anion Gap 8 MEQ/L Estimat Glomerular Filtration Rate 98 ML/MIN Salicylates Level LESS THAN 1.7 MG/DL Acetaminophen Level LESS THAN 2.0 MCG/ML Ethyl Alcohol Level LESS THAN 3 MG/DL Urine Color YELLOW Urine Turbidity CLEAR Urine pH 6.0 Urine Specific [place] 1.021 Urine Protein TRACE mg/dL Urine Glucose (UA) NEG mg/dL Urine Ketones NEG mg/dL Urine Occult Blood NEG Urine Nitrite NEG Urine Bilirubin NEG Urine Urobilinogen LESS THAN 2.0 MG/DL Urine Leukocyte Esterase NEG Urine RBC 1 /hpf Urine WBC 1 /hpf Urine Mucus FEW /lpf Microscopic Urinalysis Comment CULT NOT INDICATED Urine Opiates Screen NEG Urine Barbiturates Screen NEG Urine Amphetamines Screen NEG Urine Benzodiazepines Screen NEG Urine Cocaine Screen NEG Urine Cannabinoids Screen NEG MDM Supervised Visit with HELEN: No Narrative Course Patient in no obvious distress upon re-evaluation. Any questions/concerns in reference to patient diagnosis/condition discussed and clarified prior to patient's discharge. Reinforced sheer importance of close follow up with patient 's primary physician or primary care clinic and/or Romie Sheldon. Instructed patient to return to ED immediately, if symptoms return/worsen. Pt showed understanding of above instructions. Further instructions and recommendations were detailed in discharge paperwork. Pt ambulated without difficulty out of ED at discharge. Diagnosis Primary Impression: Drug-induced mood disorder Referrals: [facility] Patient Instructions: General Instructions Additional Instruction: Follow-up with your primary care physician and/or Romie Sheldon for reevaluation. Don't do drugs. Return to the emergency department if symptoms get worse. Disposition: 01 DISCHARGE HOME Condition: Stable Julian Chavez Apr 24, 2017 12:37
[2017-04-24 12:48] VITALS: BP 120/72; TEMP 98
== END 2017-04-24 12:55 | disposition home or self-care (01) ==
LOC: NEPC 20:48 → NEPJ 04-24 12:55
DX: F19.94 Other psychoactive substance use, unspecified with psychoactive substance-induced mood disorder (principal); F20.9 Schizophrenia, unspecified; F31.9 Bipolar disorder, unspecified; F90.9 Attention-deficit hyperactivity disorder, unspecified type; F41.9 Anxiety disorder, unspecified; F17.200 Nicotine dependence, unspecified, uncomplicated; Z79.899 Other long term (current) drug therapy
CPT/HCPCS: 80053; 80307; 81001; 85025; 99284

== ENCOUNTER 2017-11-02 02:31 | Emergency (ER) | payer OTHER, MEDICAID ==
[2017-11-02] VITALS (7 sets, daily range): BP systolic 102–145; BP diastolic 53–82; PULSE 60–88; RESP 17–20; TEMP 98–98.7; O2SAT 98–100
[~2017-11-02] VITALS: Ht 177.8 cm; Wt 90.0 kg
[~2017-11-02 02:31] MED LIST changes: +CLON1 PO; +DEPA500T3 PO; -IBUP-232 PO; +RISP4TAB41 PO
[2017-11-02] MEDS ORDERED: SODIUM CHLOR 0.9% 1000 ML INJ 1,000 ML IV SCH (02:44)
[2017-11-02] MEDS ORDERED: SODIUM CHLORIDE 0.9% FLUSH 10 ML FLUSH IV FLUSH PRN (02:45)
--- NOTE | 2017-11-02 02:46 | PD ---
HPI Chief Complaint: Alcohol/Drug Intoxication Time Seen by Provider: 02:33 Travel History International Travel<30 days: No Contact w/Intl Traveler<30days: No Traveled to known affect area: No History of Present Illness HPI The patient is a 27 year old male who presents to the [facility] emergency department with a history of altered mentation related to methamphetamine use for the last 24 hours. The patient also was expressing suicidal homicidal ideations toward her himself and his girlfriend. The patient was placed under a [place] act and brought to the emergency department. The patient has acute complaints of nausea and muscle twitching all over. The patient confirms having suicidal ideations. The patient confirms having a history of psychiatric disorder. On review of systems otherwise, the patient denies having any known recent fevers, cough or congestion, neck pain, chest pain, shortness of breath, abdominal pain, vomiting, diarrhea, urinary symptoms, or other neurologic symptoms. PFSH Past Medical History Narrative Medical The patient's past medical history is significant for anxiety and depression, schizophrenia, attention deficit disorder, hypertension. ADD: Yes ADHD: Yes Arthritis: No Asthma: Yes Autoimmune Disease: No Blood Disorders: No Bipolar Disorder: Yes Anxiety: Yes Depression: Yes (manic) Heart Rhythm Problems: No Cardiovascular Problems: No High Cholesterol: No Chest Pain: No Congestive Heart Failure: No COPD: No Cerebrovascular Accident: No Diminished Hearing: No Gastrointestinal Disorders: No GERD: No Genitourinary: No Headaches: No Hiatal Hernia: No Hypertension: Yes Kidney Stones: No Musculoskeletal: No Neurologic: No Psychiatric: Yes (SUBSTANCE ABUSE in past) Reproductive: No Respiratory: Yes Immunizations Current: Yes Migraines: No Renal Failure: No Schizophrenia: Yes Seizures: No Sickle Cell Disease: No Sleep Apnea: No Ulcer: No Tetanus Vaccination: < 5 Years Influenza Vaccination: Yes PNEUMOCCOCAL Vaccine (Year): 2 Past Surgical History Narrative Surgical The patient's past surgical history is significant for bilateral tympanostomy tubes Ear Surgery: Yes (annie tubes) Tympanostomy Tube: Yes Other Surgery: Yes (PE TUBES INSERTED WHEN HE WAS [age] YRS. OLD) Social History Alcohol Use: Yes Tobacco Use: Yes Substance Use: Yes Allergies-Medications (Allergen,Severity, Reaction): Coded Allergies: penicillin G (Verified Allergy, Mild, Hives, 11/02/17) Per pt, he is allergic to PCN. Reported Meds & Prescriptions Reported Meds & Active Scripts Active Reported Depakote ER (Divalproex Sodium) 500 Mg Ирина 500 Mg PO DAILY Klonopin (Clonazepam) 1 Mg Tab 1 Mg PO DAILY Risperdal (Risperidone) 4 Mg Tab 4 Mg PO HS Review of Systems Except as stated in HPI: all other systems reviewed are Neg General / Constitutional: No: Fever Eyes: No: Visual changes HENT: No: Headaches Cardiovascular: No: Chest Pain or Discomfort Respiratory: No: Shortness of Breath Gastrointestinal: Positive: Nausea, No: Vomiting, Abdominal Pain Genitourinary: No: Dysuria Musculoskeletal: Positive: Myalgias, Pain Skin: No Rash Neurologic: Positive: Change in Mentation, No: Weakness, Focal Abnormalities, Slurred Speech, Sensory Disturbance Psychiatric: Positive: Anxiety, Depression, Suicidal Ideations, Disorder of Thought, Mood Disorder, Substance Abuse, Homicidal Ideation Endocrine: No: Polydipsia Hematologic/Lymphatic: No: Easy Bruising Physical Exam Narrative General: The patient is a well-developed well-nourished male in no acute distress. Head and Neck exam: Head is normocephalic atraumatic. Eyes: EOMI, pupils are equal round and reactive to light. Nose: Midline septum with pink mucous membranes Mouth: Dentition unremarkable. Moist mucus membranes. Posterior oropharynx is not erythematous. No tonsillar hypertrophy. Uvula midline. Airway patent. Neck: No palpable lymphadenopathy. No nuchal rigidity. No thyromegaly. Cardiovascular: Regular rate and rhythm without murmurs, gallops, or rubs. Lungs: Clear to auscultation bilaterally. No wheezes, rhonchi, or rales. Abdomen: Soft, without tenderness to palpation in all 4 quadrants of the abdomen. No guarding, rebound, or rigidity. normal bowel sounds are audible. No tenderness on palpation of McBurney's point. Negative Manriquez sign Extremities: No clubbing, cyanosis, or edema. 2+ pulses in all 4 extremities. Back: No spinous process tenderness to palpation. No costovertebral angle tenderness to palpation. Neurologic Exam: Grossly nonfocal Skin Exam: No rash noted. Intact skin that is warm and dry. Data Data Last Documented VS Vital Signs Date Time Temp Pulse Resp B/P (MAP) Pulse Ox O2 Delivery O2 Flow Rate FiO2 11/02/17 02:52 20 11/02/17 02:43 98.5 88 98 Room Air Orders Orders Electrocardiogram (11/02/17 02:44) Complete Blood Count With Diff (11/02/17 02:44) Comprehensive Metabolic Panel (11/02/17 02:44) Creatine Kinase (Cpk) (11/02/17 02:44) Prothrombin Time / Inr (Pt) (11/02/17 02:44) Act Partial Throm Time (Ptt) (11/02/17 02:44) Troponin I (11/02/17 02:44) Thyroid Stimulating Hormone (11/02/17 02:44) Urinalysis - C+S If Indicated (11/02/17 02:44) Blood Glucose (11/02/17 02:44) Ecg Monitoring (11/02/17 02:44) Iv Access Insert/Monitor (11/02/17 02:44) Oximetry (11/02/17 02:44) Sodium Chloride 0.9% Flush (Ns Flush) (11/02/17 02:45) Sodium Chlor 0.9% 1000 Ml Inj (Ns 1000 M (11/02/17 02:44) Drug Screen, Random Urine (11/02/17 02:44) Alcohol (Ethanol) (11/02/17 02:44) Tylenol (Acetaminophen) (11/02/17 02:44) Salicylates (Aspirin) (11/02/17 02:44) Magnesium (Mg) (11/02/17 02:44) Chest, Single Ap (11/02/17 02:44) Ct Brain W/O Iv Contrast(Rout) (11/02/17 02:44) CKMB (11/02/17 02:50) CKMB% (11/02/17 02:50) Labs Laboratory Tests Test 11/02/17 02:50 White Blood Count 9.9 TH/MM3 Red Blood Count 4.64 MIL/MM3 Hemoglobin 14.8 GM/DL Hematocrit 42.6 % Mean Corpuscular Volume 91.9 FL Mean Corpuscular Hemoglobin 31.9 PG Mean Corpuscular Hemoglobin Concent 34.7 % Red Cell Distribution Width 12.8 % Platelet Count 260 TH/MM3 Mean Platelet Volume 7.8 FL Neutrophils (%) (Auto) 51.8 % Lymphocytes (%) (Auto) 37.1 % Monocytes (%) (Auto) 8.3 % Eosinophils (%) (Auto) 2.4 % Basophils (%) (Auto) 0.4 % Neutrophils # (Auto) 5.1 TH/MM3 Lymphocytes # (Auto) 3.7 TH/MM3 Monocytes # (Auto) 0.8 TH/MM3 Eosinophils # (Auto) 0.2 TH/MM3 Basophils # (Auto) 0.0 TH/MM3 CBC Comment DIFF FINAL Differential Comment Prothrombin Time 11.7 SEC Prothromb Time International Ratio 1.2 RATIO Activated Partial Thromboplast Time 28.1 SEC Blood Urea Nitrogen 9 MG/DL Creatinine 1.16 MG/DL Random Glucose 93 MG/DL Total Protein 7.1 GM/DL Albumin 4.2 GM/DL Calcium Level 9.1 MG/DL Magnesium Level 2.3 MG/DL Alkaline Phosphatase 77 U/L Aspartate Amino Transf (AST/SGOT) 20 U/L Alanine Aminotransferase (ALT/SGPT) 23 U/L Total Bilirubin 1.9 MG/DL Sodium Level 143 MEQ/L Potassium Level 3.6 MEQ/L Chloride Level 109 MEQ/L Carbon Dioxide Level 27.5 MEQ/L Anion Gap 7 MEQ/L Estimat Glomerular Filtration Rate 76 ML/MIN Total Creatine Kinase 558 U/L Creatine Kinase MB 2.6 NG/ML Creatine Kinase MB % 0.5 % Troponin I LESS THAN 0.02 NG/ML Thyroid Stimulating Hormone 3rd Gen 0.949 uIU/ML Salicylates Level LESS THAN 1.7 MG/DL Acetaminophen Level LESS THAN 2.0 MCG/ML Ethyl Alcohol Level LESS THAN 3 MG/DL MDM Medical Decision Making Medical Screen Exam Complete: Yes Emergency Medical Condition: Yes Medical Record Reviewed: Yes Differential Diagnosis Depression with suicidal ideations, versus substance-induced mood disorder Narrative Course During the course of the patient's emergency department visit, the patient's history, examination, and differential diagnosis were reviewed with the patient. The patient was placed on a engine monitor with oximetry and frequent blood pressure monitoring. The patient had IV access obtained and blood work sent for analysis. The patient had an EKG done on arrival. The patient's EKG reveals a sinus rhythm with a heart rate of 64, QRS duration is 95 ms, QTC [address] segment elevation. T waves are inverted in aVL, V1. The patient was initially provided normal saline 1 L IV fluid bolus The patient's laboratory studies were reviewed and remarkable for a white count of 9.9, hemoglobin 14.8, platelets 260 with 8.3 monocytes, CMP is remarkable for chloride of 109, GFR of 76, total bilirubin 1.9, CPK 558 with a normal MB percent of 0.5, troponin I less than 0.02, TSH 0.949, PT 11.7, PTT 28.1. Acetaminophen less than 2, alcohol less than 3, salicylate less than 1.7. Radiology studies were reviewed and remarkable for a chest x-ray, and CT scan of the brain that showed no acute abnormality. The patient has been medically cleared for evaluation by the psychiatric screener and psychiatrist under a [place] act. Diagnosis Primary Impression: Suicidal ideation Additional Impression: Methamphetamine abuse Rosina Jones MD Nov 02, 2017 02:46
[2017-11-02 03:05] LABS: AUTOMATED NEUTROPHIL # 5.1 TH/MM3 (1.8-7.7); BASOPHIL % 0.4 % (0.0-2.0); EOSINOPHIL # 0.2 TH/MM3 (0-0.4); EOSINOPHIL % 2.4 % (0.0-4.0); HEMATOCRIT 42.6 % (39.0-51.0); HEMOGLOBIN 14.8 GM/DL (13.0-17.0); LYMPH % 37.1 % (9.0-44.0); LYMPHOCYTE # 3.7 TH/MM3 (1.0-4.8); MEAN CELL VOLUME 91.9 FL (80.0-100.0); MEAN CORPUSCULAR HEMOGLOBIN 31.9 PG (27.0-34.0); MEAN CORPUSCULAR HGB CONC 34.7 % (32.0-36.0); MEAN PLATELET VOLUME 7.8 FL (7.0-11.0); MONO % 8.3 % (0.0-8.0); MONOCYTE # 0.8 TH/MM3 (0-0.9); NEUT % 51.8 % (16.0-70.0); PLATELET COUNT 260 TH/MM3 (150-450); RED BLOOD COUNT 4.64 MIL/MM3 (4.50-5.90); RED CELL DISTRIBUTION WIDTH 12.8 % (11.6-17.2); WHITE BLOOD COUNT 9.9 TH/MM3 (4.0-11.0)
[2017-11-02 03:18] LABS: INTERNATIONAL NORMALIZED RATIO 1.2 RATIO; PROTHROMBIN TIME - PATIENT 11.7 SEC (9.8-11.6)
--- NOTE | 2017-11-02 03:30 | RADRPT ---
EXAM DATE/TIME: 11/02/2017 03:06 [facility] COMPARISON: No previous studies available for comparison. INDICATIONS : Altered mental status. RADIATION DOSE: 35.78 CTDIvol (mGy) MEDICAL HISTORY : Hypertension. Hepatitis B. Substance abuse. SURGICAL HISTORY : None. ENCOUNTER: Initial ACUITY: 1 day PAIN SCALE: 0/10 LOCATION: cranial TECHNIQUE: Multiple contiguous axial images were obtained of the head. Using automated exposure control and adj ustment of the mA and/or kV according to patient size, radiation dose was kept as low as reasonably a chievable to obtain optimal diagnostic quality images. DICOM format image data is available electro nically for review and comparison. FINDINGS: CEREBRUM: The ventricles are normal for age. No evidence of midline shift, mass lesion, hemorrhage or acute in farction. No extra-axial fluid collections are seen. POSTERIOR FOSSA: The cerebellum and brainstem are intact. The 4th ventricle is midline. The cerebellopontine angle i s unremarkable. EXTRACRANIAL: The visualized portion of the orbits is intact. SKULL: The calvaria is intact. No evidence of skull fracture. CONCLUSION: Normal examination for a patient of this age. Abiel Griffin MD on November 02, 2017 at 3:27 Board Certified Radiologist. This report was verified electronically.
--- NOTE | 2017-11-02 03:30 | RADRPT ---
EXAM DATE/TIME: 11/02/2017 02:58 [facility] COMPARISON: No previous studies available for comparison. INDICATIONS : Cough. MEDICAL HISTORY : Asthma. UTI. SURGICAL HISTORY : Tympanostomy tubes ENCOUNTER: Initial ACUITY: 1 day PAIN SCORE: 0/10 LOCATION: Bilateral chest FINDINGS: A single view of the chest demonstrates the lungs to be symmetrically aerated without evidence of mas s, infiltrate or effusion. The cardiomediastinal contours are unremarkable. Osseous structures are intact. CONCLUSION: No acute disease. Abiel Griffin MD on November 02, 2017 at 3:29 Board Certified Radiologist. This report was verified electronically.
[2017-11-02 03:34] LABS: ALBUMIN 4.2 GM/DL (3.4-5.0); AST (GOT) 20 U/L (15-37); BICARBONATE 27.5 MEQ/L (21.0-32.0); BLOOD UREA NITROGEN 9 MG/DL (7-18); CALCIUM 9.1 MG/DL (8.5-10.1); CHLORIDE 109 MEQ/L (98-107); CREATININE 1.16 MG/DL (0.60-1.30); GLOMERULAR FILTRATION RATE 76 ML/MIN (>89); GLUCOSE,RANDOM 93 MG/DL (74-106); MAGNESIUM 2.3 MG/DL (1.5-2.5); SODIUM (NA) 143 MEQ/L (136-145)
[2017-11-02 03:43] LABS: ALKALINE PHOSPHATASE 77 U/L (45-117); ALT (GPT) 23 U/L (12-78); TOTAL BILIRUBIN ADULT 1.9 MG/DL (0.2-1.0); TOTAL PROTEIN 7.1 GM/DL (6.4-8.2); TROPONIN I LESS THAN 0.02 NG/ML (0.02-0.05)
[2017-11-02 03:44] LABS: ACETAMINOPHEN LESS THAN 2.0 MCG/ML (10.0-30.0)
[2017-11-02] MEDS ORDERED: LORazepam 1 MG TAB PO ONE ×2 (11:00→19:30)
--- NOTE | 2017-11-02 12:22 | EKG ---
Date Performed: 11/02/2017 Time Performed: 02:40:15 PTAGE: 27 years EKG: Sinus rhythm NORMAL ECG PREVIOUS TRACING : 06/02/2017 03.49 Since the previous tracing, no significant change noted DOCTOR: Nickolas Ruiz Interpretating Date/Time 11/02/2017 12:17:33
[2017-11-02 13:36] LABS: BILIRUBIN, URINE NEG (NEG); BLOOD, URINE NEG (NEG); GLUCOSE,URINE NEG (NEG); KETONE, URINE NEG (NEG); MUCUS URINE FEW /lpf (OCC); NITRITE,URINE NEG (NEG); PH, URINE 6.5 (5.0-8.5); URINE COLOR YELLOW (YELLW/STRAW); URINE LEUKOCYTE ESTERASE NEG (NEG)
[2017-11-03 02:13] VITALS: BP 105/64; PULSE 57; RESP 18; TEMP 98.2; O2SAT 99
[2017-11-03 06:33] VITALS: BP 131/84; PULSE 54; RESP 18; TEMP 99; O2SAT 98
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
[2017-11-03] MEDS ORDERED: RISP0.5T2 PO (09:42)
--- NOTE | 2017-11-03 09:43 | PD ---
HPI Chief Complaint: Alcohol/Drug Intoxication Time Seen by Provider: 09:42 Travel History International Travel<30 days: No Contact w/Intl Traveler<30days: No Traveled to known affect area: No PFSH Past Medical History ADD: Yes ADHD: Yes Arthritis: No Asthma: Yes Autoimmune Disease: No Blood Disorders: No Bipolar Disorder: Yes Anxiety: Yes Depression: Yes (manic) Heart Rhythm Problems: No Cardiovascular Problems: No High Cholesterol: No Chest Pain: No Congestive Heart Failure: No COPD: No Cerebrovascular Accident: No Diminished Hearing: No Gastrointestinal Disorders: No GERD: No Genitourinary: No Headaches: No Hiatal Hernia: No Hypertension: Yes Kidney Stones: No Musculoskeletal: No Neurologic: No Psychiatric: Yes (SUBSTANCE ABUSE in past) Reproductive: No Respiratory: Yes Immunizations Current: Yes Migraines: No Renal Failure: No Schizophrenia: Yes Seizures: No Sickle Cell Disease: No Sleep Apnea: No Ulcer: No Tetanus Vaccination: < 5 Years Influenza Vaccination: Yes PNEUMOCCOCAL Vaccine (Year): 2 Past Surgical History Ear Surgery: Yes (annie tubes) Tympanostomy Tube: Yes Other Surgery: Yes (PE TUBES INSERTED WHEN HE WAS [age] YRS. OLD) Social History Alcohol Use: Yes Tobacco Use: Yes Substance Use: Yes Allergies-Medications (Allergen,Severity, Reaction): Coded Allergies: penicillin G (Verified Allergy, Mild, Hives, 11/02/17) Per pt, he is allergic to PCN. Reported Meds & Prescriptions Reported Meds & Active Scripts Active Risperidone 0.5 Mg Tab 0.5 Mg PO Q12HR Reported Depakote ER (Divalproex Sodium) 500 Mg Ирина 500 Mg PO DAILY Klonopin (Clonazepam) 1 Mg Tab 1 Mg PO DAILY Risperdal (Risperidone) 4 Mg Tab 4 Mg PO HS Data Data Last Documented VS Vital Signs Date Time Temp Pulse Resp B/P (MAP) Pulse Ox O2 Delivery O2 Flow Rate FiO2 11/03/17 10:14 11/03/17 06:33 99.0 54 18 98 Room Air Orders Orders Electrocardiogram (11/02/17 02:44) Complete Blood Count With Diff (11/02/17 02:44) Comprehensive Metabolic Panel (11/02/17 02:44) Creatine Kinase (Cpk) (11/02/17 02:44) Prothrombin Time / Inr (Pt) (11/02/17 02:44) Act Partial Throm Time (Ptt) (11/02/17 02:44) Troponin I (11/02/17 02:44) Thyroid Stimulating Hormone (11/02/17 02:44) Urinalysis - C+S If Indicated (11/02/17 02:44) Blood Glucose (11/02/17 02:44) Ecg Monitoring (11/02/17 02:44) Iv Access Insert/Monitor (11/02/17 02:44) Oximetry (11/02/17 02:44) Sodium Chloride 0.9% Flush (Ns Flush) (11/02/17 02:45) Sodium Chlor 0.9% 1000 Ml Inj (Ns 1000 M (11/02/17 02:44) Drug Screen, Random Urine (11/02/17 02:44) Alcohol (Ethanol) (11/02/17 02:44) Tylenol (Acetaminophen) (11/02/17 02:44) Salicylates (Aspirin) (11/02/17 02:44) Magnesium (Mg) (11/02/17 02:44) Chest, Single Ap (11/02/17 02:44) Ct Brain W/O Iv Contrast(Rout) (11/02/17 02:44) CKMB (11/02/17 02:50) CKMB% (11/02/17 02:50) Psych Screen (11/02/17 08:33) Lorazepam (Ativan) (11/02/17 11:00) Diet Regular Basic (11/02/17 Lunch) Diet Regular Basic (11/02/17 Dinner) Lorazepam (Ativan) (11/02/17 19:30) Diet Regular Basic (11/03/17 Breakfast) Ed Discharge Order (11/03/17 09:59) Labs Laboratory Tests Test 11/02/17 02:50 11/02/17 13:00 White Blood Count 9.9 TH/MM3 Red Blood Count 4.64 MIL/MM3 Hemoglobin 14.8 GM/DL Hematocrit 42.6 % Mean Corpuscular Volume 91.9 FL Mean Corpuscular Hemoglobin 31.9 PG Mean Corpuscular Hemoglobin Concent 34.7 % Red Cell Distribution Width 12.8 % Platelet Count 260 TH/MM3 Mean Platelet Volume 7.8 FL Neutrophils (%) (Auto) 51.8 % Lymphocytes (%) (Auto) 37.1 % Monocytes (%) (Auto) 8.3 % Eosinophils (%) (Auto) 2.4 % Basophils (%) (Auto) 0.4 % Neutrophils # (Auto) 5.1 TH/MM3 Lymphocytes # (Auto) 3.7 TH/MM3 Monocytes # (Auto) 0.8 TH/MM3 Eosinophils # (Auto) 0.2 TH/MM3 Basophils # (Auto) 0.0 TH/MM3 CBC Comment DIFF FINAL Differential Comment Prothrombin Time 11.7 SEC Prothromb Time International Ratio 1.2 RATIO Activated Partial Thromboplast Time 28.1 SEC Blood Urea Nitrogen 9 MG/DL Creatinine 1.16 MG/DL Random Glucose 93 MG/DL Total Protein 7.1 GM/DL Albumin 4.2 GM/DL Calcium Level 9.1 MG/DL Magnesium Level 2.3 MG/DL Alkaline Phosphatase 77 U/L Aspartate Amino Transf (AST/SGOT) 20 U/L Alanine Aminotransferase (ALT/SGPT) 23 U/L Total Bilirubin 1.9 MG/DL Sodium Level 143 MEQ/L Potassium Level 3.6 MEQ/L Chloride Level 109 MEQ/L Carbon Dioxide Level 27.5 MEQ/L Anion Gap 7 MEQ/L Estimat Glomerular Filtration Rate 76 ML/MIN Total Creatine Kinase 558 U/L Creatine Kinase MB 2.6 NG/ML Creatine Kinase MB % 0.5 % Troponin I LESS THAN 0.02 NG/ML Thyroid Stimulating Hormone 3rd Gen 0.949 uIU/ML Salicylates Level LESS THAN 1.7 MG/DL Acetaminophen Level LESS THAN 2.0 MCG/ML Ethyl Alcohol Level LESS THAN 3 MG/DL Urine Color YELLOW Urine Turbidity CLEAR Urine pH 6.5 Urine Specific [place] 1.016 Urine Protein NEG mg/dL Urine Glucose (UA) NEG mg/dL Urine Ketones NEG mg/dL Urine Occult Blood NEG Urine Nitrite NEG Urine Bilirubin NEG Urine Urobilinogen LESS THAN 2.0 MG/DL Urine Leukocyte Esterase NEG Urine WBC LESS THAN 1 /hpf Urine Mucus FEW /lpf Microscopic Urinalysis Comment CULT NOT INDICATED Urine Opiates Screen NEG Urine Barbiturates Screen NEG Urine Amphetamines Screen POS Urine Benzodiazepines Screen NEG Urine Cocaine Screen NEG Urine Cannabinoids Screen POS MDM Diagnosis Primary Impression: Methamphetamine abuse Scripts Risperidone (Risperidone) 0.5 Mg Tab 0.5 MG PO Q12HR, #60 TAB 0 Refills Prov: Antoine Zaragoza MD 11/03/17 Dennis Moore Nov 03, 2017 09:43
--- NOTE | 2017-11-03 09:56 | PD ---
Physical Exam Date Seen by Provider: Nov 03, 2017 Time Seen by Provider: 09:43 Narrative Patient was medically cleared for psychiatric evaluation. Patient has been seen by psychiatric services and felt to be psychiatrically stable for discharge. Patient remains medically stable for discharge. Patient is to follow-up as per psychiatric note. Data Data Last Documented VS Vital Signs Date Time Temp Pulse Resp B/P (MAP) Pulse Ox O2 Delivery O2 Flow Rate FiO2 11/03/17 06:33 99.0 54 18 131/84 (100) 98 Room Air Orders Orders Electrocardiogram (11/02/17 02:44) Complete Blood Count With Diff (11/02/17 02:44) Comprehensive Metabolic Panel (11/02/17 02:44) Creatine Kinase (Cpk) (11/02/17 02:44) Prothrombin Time / Inr (Pt) (11/02/17 02:44) Act Partial Throm Time (Ptt) (11/02/17 02:44) Troponin I (11/02/17 02:44) Thyroid Stimulating Hormone (11/02/17 02:44) Urinalysis - C+S If Indicated (11/02/17 02:44) Blood Glucose (11/02/17 02:44) Ecg Monitoring (11/02/17 02:44) Iv Access Insert/Monitor (11/02/17 02:44) Oximetry (11/02/17 02:44) Sodium Chloride 0.9% Flush (Ns Flush) (11/02/17 02:45) Sodium Chlor 0.9% 1000 Ml Inj (Ns 1000 M (11/02/17 02:44) Drug Screen, Random Urine (11/02/17 02:44) Alcohol (Ethanol) (11/02/17 02:44) Tylenol (Acetaminophen) (11/02/17 02:44) Salicylates (Aspirin) (11/02/17 02:44) Magnesium (Mg) (11/02/17 02:44) Chest, Single Ap (11/02/17 02:44) Ct Brain W/O Iv Contrast(Rout) (11/02/17 02:44) CKMB (11/02/17 02:50) CKMB% (11/02/17 02:50) Psych Screen (11/02/17 08:33) Lorazepam (Ativan) (11/02/17 11:00) Diet Regular Basic (11/02/17 Lunch) Diet Regular Basic (11/02/17 Dinner) Lorazepam (Ativan) (11/02/17 19:30) Diet Regular Basic (11/03/17 Breakfast) Labs Laboratory Tests Test 11/02/17 02:50 11/02/17 13:00 White Blood Count 9.9 TH/MM3 Red Blood Count 4.64 MIL/MM3 Hemoglobin 14.8 GM/DL Hematocrit 42.6 % Mean Corpuscular Volume 91.9 FL Mean Corpuscular Hemoglobin 31.9 PG Mean Corpuscular Hemoglobin Concent 34.7 % Red Cell Distribution Width 12.8 % Platelet Count 260 TH/MM3 Mean Platelet Volume 7.8 FL Neutrophils (%) (Auto) 51.8 % Lymphocytes (%) (Auto) 37.1 % Monocytes (%) (Auto) 8.3 % Eosinophils (%) (Auto) 2.4 % Basophils (%) (Auto) 0.4 % Neutrophils # (Auto) 5.1 TH/MM3 Lymphocytes # (Auto) 3.7 TH/MM3 Monocytes # (Auto) 0.8 TH/MM3 Eosinophils # (Auto) 0.2 TH/MM3 Basophils # (Auto) 0.0 TH/MM3 CBC Comment DIFF FINAL Differential Comment Prothrombin Time 11.7 SEC Prothromb Time International Ratio 1.2 RATIO Activated Partial Thromboplast Time 28.1 SEC Blood Urea Nitrogen 9 MG/DL Creatinine 1.16 MG/DL Random Glucose 93 MG/DL Total Protein 7.1 GM/DL Albumin 4.2 GM/DL Calcium Level 9.1 MG/DL Magnesium Level 2.3 MG/DL Alkaline Phosphatase 77 U/L Aspartate Amino Transf (AST/SGOT) 20 U/L Alanine Aminotransferase (ALT/SGPT) 23 U/L Total Bilirubin 1.9 MG/DL Sodium Level 143 MEQ/L Potassium Level 3.6 MEQ/L Chloride Level 109 MEQ/L Carbon Dioxide Level 27.5 MEQ/L Anion Gap 7 MEQ/L Estimat Glomerular Filtration Rate 76 ML/MIN Total Creatine Kinase 558 U/L Creatine Kinase MB 2.6 NG/ML Creatine Kinase MB % 0.5 % Troponin I LESS THAN 0.02 NG/ML Thyroid Stimulating Hormone 3rd Gen 0.949 uIU/ML Salicylates Level LESS THAN 1.7 MG/DL Acetaminophen Level LESS THAN 2.0 MCG/ML Ethyl Alcohol Level LESS THAN 3 MG/DL Urine Color YELLOW Urine Turbidity CLEAR Urine pH 6.5 Urine Specific [place] 1.016 Urine Protein NEG mg/dL Urine Glucose (UA) NEG mg/dL Urine Ketones NEG mg/dL Urine Occult Blood NEG Urine Nitrite NEG Urine Bilirubin NEG Urine Urobilinogen LESS THAN 2.0 MG/DL Urine Leukocyte Esterase NEG Urine WBC LESS THAN 1 /hpf Urine Mucus FEW /lpf Microscopic Urinalysis Comment CULT NOT INDICATED Urine Opiates Screen NEG Urine Barbiturates Screen NEG Urine Amphetamines Screen POS Urine Benzodiazepines Screen NEG Urine Cocaine Screen NEG Urine Cannabinoids Screen POS MDM Medical Record Reviewed: Yes Supervised Visit with HELEN: Yes Narrative Course Patient was medically cleared for psychiatric evaluation. Patient has been seen by psychiatric services and felt to be psychiatrically stable for discharge. Patient remains medically stable for discharge. Patient is to follow-up as per psychiatric note. Diagnosis Primary Impression: Methamphetamine abuse Patient Instructions: General Instructions Scripts Risperidone (Risperidone) 0.5 Mg Tab 0.5 MG PO Q12HR, #60 TAB 0 Refills Prov: Antoine Zaragoza MD 11/03/17 Disposition: 01 DISCHARGE HOME Condition: Stable Dennis Moore Nov 03, 2017 09:56
== END 2017-11-03 10:17 | disposition home or self-care (01) ==
LOC: NEPC 02:31 → NEPJ 11-03 10:17
DX: F15.10 Other stimulant abuse, uncomplicated (principal); F12.10 Cannabis abuse, uncomplicated; F90.9 Attention-deficit hyperactivity disorder, unspecified type; J45.909 Unspecified asthma, uncomplicated; F31.9 Bipolar disorder, unspecified; I10 Essential (primary) hypertension; F20.9 Schizophrenia, unspecified; Z72.0 Tobacco use; Z79.899 Other long term (current) drug therapy
CPT/HCPCS: 70450; 71045; 80053; 80307; 81001; 82550; 82552; 83735; 84443; 84484; 85025; 85610; 85730; 93005; 96360; 99285; J7030

== ENCOUNTER 2017-12-24 02:34 | Emergency (ER) | payer SELFPAY ==
[~2017-12-24] VITALS: Ht 180.3 cm; Wt 72.0 kg
[~2017-12-24 02:34] MED LIST changes: +RISP0.5T2 PO
[2017-12-24 02:41] VITALS: BP 177/64; PULSE 50; RESP 16; TEMP 97.4; O2SAT 100
--- NOTE | 2017-12-24 03:31 | PD ---
HPI Chief Complaint: Suicide Ideation/Attempt Time Seen by Provider: 03:05 Travel History International Travel<30 days: No Contact w/Intl Traveler<30days: No Traveled to known affect area: No History of Present Illness HPI 27-year-old white male presents emergency department requesting psychiatric evaluation as well as detox. He states that he has a history of schizophrenia and bipolar disorder. He also has a history of methamphetamine and heroin use. He would like to get into a dual diagnosis program. He states that he needs to be back on his psych meds as well as getting detox. Patient states that he has had thoughts of self-harm but has no current plan. He would like to get sober. He had his children taken away last month due to his drug abuse. His significant other who is the mother of his children is currently in residential. He denies any toxic ingestion. He last used earlier today. PFSH Past Medical History ADD: Yes ADHD: Yes Arthritis: No Asthma: Yes Autoimmune Disease: No Blood Disorders: No Bipolar Disorder: Yes Anxiety: Yes Depression: Yes (manic) Heart Rhythm Problems: No Cardiovascular Problems: No High Cholesterol: No Chest Pain: No Congestive Heart Failure: No COPD: No Cerebrovascular Accident: No Diminished Hearing: No Gastrointestinal Disorders: No GERD: No Genitourinary: No Headaches: No Hiatal Hernia: No Hypertension: Yes Kidney Stones: No Musculoskeletal: No Neurologic: No Psychiatric: Yes (SUBSTANCE ABUSE in past) Reproductive: No Respiratory: Yes Immunizations Current: Yes Migraines: No Renal Failure: No Schizophrenia: Yes Seizures: No Sickle Cell Disease: No Sleep Apnea: No Ulcer: No Tetanus Vaccination: Unknown Influenza Vaccination: No PNEUMOCCOCAL Vaccine (Year): 2 Past Surgical History Ear Surgery: Yes (annie tubes) Tympanostomy Tube: Yes Other Surgery: Yes (PE TUBES INSERTED WHEN HE WAS [age] YRS. OLD) Social History Alcohol Use: Yes Tobacco Use: Yes Substance Use: Yes (meth and herion) Allergies-Medications (Allergen,Severity, Reaction): Coded Allergies: penicillin G (Verified Allergy, Mild, Hives, 12/24/17) Per pt, he is allergic to PCN. Reported Meds & Prescriptions Reported Meds & Active Scripts Active Risperidone 0.5 Mg Tab 0.5 Mg PO Q12HR Reported Depakote ER (Divalproex Sodium) 500 Mg Ирина 500 Mg PO DAILY Klonopin (Clonazepam) 1 Mg Tab 1 Mg PO DAILY Risperdal (Risperidone) 4 Mg Tab 4 Mg PO HS Review of Systems General / Constitutional: No: Fever Eyes: No: Visual changes HENT: No: Headaches Cardiovascular: No: Chest Pain or Discomfort Respiratory: No: Shortness of Breath Gastrointestinal: Positive: Nausea, Abdominal Pain Genitourinary: No: Dysuria Musculoskeletal: Positive: Myalgias, No: Pain Skin: No Rash Neurologic: No: Weakness Psychiatric: No: Depression Endocrine: No: Polydipsia Hematologic/Lymphatic: No: Easy Bruising Physical Exam Narrative GENERAL: Well-nourished, well-developed patient. SKIN: Warm and dry. HEAD: Normocephalic and atraumatic. EYES: No scleral icterus. No injection or drainage. ENT: No nasal drainage noted. Mucous membranes pink. Airway patent. NECK: Supple, trachea midline. Moves head freely without obvious discomfort. CARDIOVASCULAR: Regular rate and rhythm without murmurs, gallops, or rubs. RESPIRATORY: Breath sounds equal bilaterally. No accessory muscle use. GASTROINTESTINAL: Abdomen soft, non-tender, nondistended. EXTREMITIES: No cyanosis or edema. BACK: Nontender without obvious deformity. No CVA tenderness. NEURO: Patient is alert and oriented. no sensorimotor deficits. Nonfocal. Normal speech. PSYCH: No delusions. No auditory or visual hallucinations. Data Data Last Documented VS Vital Signs Date Time Temp Pulse Resp B/P (MAP) Pulse Ox O2 Delivery O2 Flow Rate FiO2 12/24/17 02:41 97.4 50 16 177/64 (101) 100 Orders Orders Complete Blood Count With Diff (12/24/17 03:26) Comprehensive Metabolic Panel (12/24/17 03:26) Psych Screen (12/24/17 03:26) Drug Screen, Random Urine (12/24/17 03:26) Alcohol (Ethanol) (12/24/17 03:26) Labs Laboratory Tests Test 12/24/17 03:40 White Blood Count 7.8 TH/MM3 Red Blood Count 4.41 MIL/MM3 Hemoglobin 14.1 GM/DL Hematocrit 40.7 % Mean Corpuscular Volume 92.4 FL Mean Corpuscular Hemoglobin 32.1 PG Mean Corpuscular Hemoglobin Concent 34.7 % Red Cell Distribution Width 12.9 % Platelet Count 269 TH/MM3 Mean Platelet Volume 7.7 FL Neutrophils (%) (Auto) 32.2 % Lymphocytes (%) (Auto) 54.0 % Monocytes (%) (Auto) 8.5 % Eosinophils (%) (Auto) 4.5 % Basophils (%) (Auto) 0.8 % Neutrophils # (Auto) 2.5 TH/MM3 Lymphocytes # (Auto) 4.2 TH/MM3 Monocytes # (Auto) 0.7 TH/MM3 Eosinophils # (Auto) 0.3 TH/MM3 Basophils # (Auto) 0.1 TH/MM3 CBC Comment DIFF FINAL Differential Comment Blood Urea Nitrogen 22 MG/DL Creatinine 1.31 MG/DL Random Glucose 90 MG/DL Total Protein 7.1 GM/DL Albumin 4.0 GM/DL Calcium Level 8.7 MG/DL Alkaline Phosphatase 80 U/L Aspartate Amino Transf (AST/SGOT) 17 U/L Alanine Aminotransferase (ALT/SGPT) 27 U/L Total Bilirubin 1.1 MG/DL Sodium Level 141 MEQ/L Potassium Level 4.0 MEQ/L Chloride Level 105 MEQ/L Carbon Dioxide Level 30.1 MEQ/L Anion Gap 6 MEQ/L Estimat Glomerular Filtration Rate 66 ML/MIN Urine Opiates Screen NEG Urine Barbiturates Screen NEG Urine Amphetamines Screen POS Urine Benzodiazepines Screen NEG Urine Cocaine Screen NEG Urine Cannabinoids Screen POS Ethyl Alcohol Level LESS THAN 3 MG/DL MDM Medical Decision Making Medical Screen Exam Complete: Yes Emergency Medical Condition: Yes Medical Record Reviewed: Yes Interpretation(s) Laboratory Tests Test 12/24/17 03:40 White Blood Count 7.8 TH/MM3 Red Blood Count 4.41 MIL/MM3 Hemoglobin 14.1 GM/DL Hematocrit 40.7 % Mean Corpuscular Volume 92.4 FL Mean Corpuscular Hemoglobin 32.1 PG Mean Corpuscular Hemoglobin Concent 34.7 % Red Cell Distribution Width 12.9 % Platelet Count 269 TH/MM3 Mean Platelet Volume 7.7 FL Neutrophils (%) (Auto) 32.2 % Lymphocytes (%) (Auto) 54.0 % Monocytes (%) (Auto) 8.5 % Eosinophils (%) (Auto) 4.5 % Basophils (%) (Auto) 0.8 % Neutrophils # (Auto) 2.5 TH/MM3 Lymphocytes # (Auto) 4.2 TH/MM3 Monocytes # (Auto) 0.7 TH/MM3 Eosinophils # (Auto) 0.3 TH/MM3 Basophils # (Auto) 0.1 TH/MM3 CBC Comment DIFF FINAL Differential Comment Blood Urea Nitrogen 22 MG/DL Creatinine 1.31 MG/DL Random Glucose 90 MG/DL Total Protein 7.1 GM/DL Albumin 4.0 GM/DL Calcium Level 8.7 MG/DL Alkaline Phosphatase 80 U/L Aspartate Amino Transf (AST/SGOT) 17 U/L Alanine Aminotransferase (ALT/SGPT) 27 U/L Total Bilirubin 1.1 MG/DL Sodium Level 141 MEQ/L Potassium Level 4.0 MEQ/L Chloride Level 105 MEQ/L Carbon Dioxide Level 30.1 MEQ/L Anion Gap 6 MEQ/L Estimat Glomerular Filtration Rate 66 ML/MIN Urine Opiates Screen NEG Urine Barbiturates Screen NEG Urine Amphetamines Screen POS Urine Benzodiazepines Screen NEG Urine Cocaine Screen NEG Urine Cannabinoids Screen POS Ethyl Alcohol Level LESS THAN 3 MG/DL Differential Diagnosis MDM: High Differential diagnoses: Schizophrenia, schizoaffective disorder, bipolar, anxiety, depression, adjustment reaction, mood disorder NOS, ODD, depressive disorder NOS, dementia, dementia with agitation, psychosis NOS, substance induced mood disorder, DMDD, Asperger syndrome, infection,electrolyte abnormality, malingering. Narrative Course Mental health screening discussed with the patient. Psychiatric screen ordered. The patient has been medically cleared. This is bipolar, polysubstance abuse Diagnosis Primary Impression: Bipolar Additional Impression: Polysubstance abuse Condition: Stable Abiel Gifford December 24, 2017 03:31
[2017-12-24 03:58] LABS: AUTOMATED NEUTROPHIL # 2.5 TH/MM3 (1.8-7.7); BASOPHIL # 0.1 TH/MM3 (0-0.2); BASOPHIL % 0.8 % (0.0-2.0); EOSINOPHIL # 0.3 TH/MM3 (0-0.4); EOSINOPHIL % 4.5 % (0.0-4.0); HEMATOCRIT 40.7 % (39.0-51.0); HEMOGLOBIN 14.1 GM/DL (13.0-17.0); LYMPHOCYTE # 4.2 TH/MM3 (1.0-4.8); MEAN CELL VOLUME 92.4 FL (80.0-100.0); MEAN CORPUSCULAR HEMOGLOBIN 32.1 PG (27.0-34.0); MEAN CORPUSCULAR HGB CONC 34.7 % (32.0-36.0); MEAN PLATELET VOLUME 7.7 FL (7.0-11.0); MONO % 8.5 % (0.0-8.0); MONOCYTE # 0.7 TH/MM3 (0-0.9); NEUT % 32.2 % (16.0-70.0); PLATELET COUNT 269 TH/MM3 (150-450); RED BLOOD COUNT 4.41 MIL/MM3 (4.50-5.90); RED CELL DISTRIBUTION WIDTH 12.9 % (11.6-17.2); WHITE BLOOD COUNT 7.8 TH/MM3 (4.0-11.0)
[2017-12-24 04:17] LABS: AST (GOT) 17 U/L (15-37); BICARBONATE 30.1 MEQ/L (21.0-32.0); BLOOD UREA NITROGEN 22 MG/DL (7-18); CALCIUM 8.7 MG/DL (8.5-10.1); CHLORIDE 105 MEQ/L (98-107); CREATININE 1.31 MG/DL (0.60-1.30); GLOMERULAR FILTRATION RATE 66 ML/MIN (>89); GLUCOSE,RANDOM 90 MG/DL (74-106); SODIUM (NA) 141 MEQ/L (136-145)
[2017-12-24 04:21] LABS: ALKALINE PHOSPHATASE 80 U/L (45-117); ALT (GPT) 27 U/L (12-78); TOTAL BILIRUBIN ADULT 1.1 MG/DL (0.2-1.0); TOTAL PROTEIN 7.1 GM/DL (6.4-8.2)
--- NOTE | 2017-12-24 11:35 | PD ---
Physical Exam Date Seen by Provider: December 24, 2017 Time Seen by Provider: 11:33 Narrative 27-year-old male previously medically clear for psychiatric evaluation has been seen by the psychiatric staff and deemed psychiatrically stable for discharge. It is recommended the patient follow-up with [facility]. He remains medically stable for discharge at this time. Data Data Last Documented VS Vital Signs Date Time Temp Pulse Resp B/P (MAP) Pulse Ox O2 Delivery O2 Flow Rate FiO2 12/24/17 02:41 97.4 50 16 177/64 (101) 100 Orders Orders Complete Blood Count With Diff (12/24/17 03:26) Comprehensive Metabolic Panel (12/24/17 03:26) Psych Screen (12/24/17 03:26) Drug Screen, Random Urine (12/24/17 03:26) Alcohol (Ethanol) (12/24/17 03:26) Diet Regular Basic (12/24/17 Lunch) Labs Laboratory Tests Test 12/24/17 03:40 White Blood Count 7.8 TH/MM3 Red Blood Count 4.41 MIL/MM3 Hemoglobin 14.1 GM/DL Hematocrit 40.7 % Mean Corpuscular Volume 92.4 FL Mean Corpuscular Hemoglobin 32.1 PG Mean Corpuscular Hemoglobin Concent 34.7 % Red Cell Distribution Width 12.9 % Platelet Count 269 TH/MM3 Mean Platelet Volume 7.7 FL Neutrophils (%) (Auto) 32.2 % Lymphocytes (%) (Auto) 54.0 % Monocytes (%) (Auto) 8.5 % Eosinophils (%) (Auto) 4.5 % Basophils (%) (Auto) 0.8 % Neutrophils # (Auto) 2.5 TH/MM3 Lymphocytes # (Auto) 4.2 TH/MM3 Monocytes # (Auto) 0.7 TH/MM3 Eosinophils # (Auto) 0.3 TH/MM3 Basophils # (Auto) 0.1 TH/MM3 CBC Comment DIFF FINAL Differential Comment Blood Urea Nitrogen 22 MG/DL Creatinine 1.31 MG/DL Random Glucose 90 MG/DL Total Protein 7.1 GM/DL Albumin 4.0 GM/DL Calcium Level 8.7 MG/DL Alkaline Phosphatase 80 U/L Aspartate Amino Transf (AST/SGOT) 17 U/L Alanine Aminotransferase (ALT/SGPT) 27 U/L Total Bilirubin 1.1 MG/DL Sodium Level 141 MEQ/L Potassium Level 4.0 MEQ/L Chloride Level 105 MEQ/L Carbon Dioxide Level 30.1 MEQ/L Anion Gap 6 MEQ/L Estimat Glomerular Filtration Rate 66 ML/MIN Urine Opiates Screen NEG Urine Barbiturates Screen NEG Urine Amphetamines Screen POS Urine Benzodiazepines Screen NEG Urine Cocaine Screen NEG Urine Cannabinoids Screen POS Ethyl Alcohol Level LESS THAN 3 MG/DL MDM Medical Record Reviewed: Yes Supervised Visit with HELEN: Yes Narrative Course 27-year-old male previously medically clear for psychiatric evaluation has been seen by the psychiatric staff and deemed psychiatrically stable for discharge. It is recommended the patient follow-up with [facility]. He remains medically stable for discharge at this time. Diagnosis Primary Impression: Bipolar Additional Impression: Polysubstance abuse [facility] Patient Instructions: General Instructions Disposition: 01 DISCHARGE HOME Condition: Stable Dennis Moore December 24, 2017 11:35
--- NOTE | 2017-12-24 11:52 | PD ---
History of Present Illness Chief Complaint: Suicide Ideation/Attempt Time Seen by Provider: 11:09 Travel History International Travel<30 Days: No Contact w/Intl Traveler<30days: No Known affected area: No Legal Status Legal Status: Voluntary History of Present Illness: This is a 27-year-old single, male who presents voluntarily to this facility was self-reported depression and suicidal ideation. He has been seen at this facility on multiple occasions for polysubstance abuse. Today he presents stating "I am just coming off drugs I am suicidal and depressed, I need to quit using them". Reviewed electronic medical record, labs, discussed case with staff. Patient's toxicology screen is positive for methamphetamines and cannabinoids. Patient was evaluated in his room with staff present. Patient is alert and oriented X 4. His speech is clear and organized. There is no indication of internal stimulation or thought blocking. Although he endorses suicide by "walking into traffic", he is future oriented, expressing that he "needs to get clean for my son". Patient denies homicidal ideation, auditory or visual hallucinations. I can elicit no delusional material. Patient reports a previous history of schizophrenia, bipolar, depression, and PTSD. He states that he has been inpatient on multiple occasions at [facility]. He reports that he has had no treatment since that time. Patient is 28 years old. He reports that he smokes 2 packs of cigarettes per day when he "cannot afford them". He denies using alcohol. He reports abusing methamphetamines and heroin. Patient does admit to being homeless and unemployed at this time. He states that his family " wants me to get help", and additionally that he wants to get help with a drug problem as well. [facility] Past Medical History ADD: Yes ADHD: Yes Arthritis: No Asthma: Yes Autoimmune Disease: No Blood Disorders: No Bipolar Disorder: Yes Anxiety: Yes Depression: Yes (manic) Heart Rhythm Problems: No Cardiovascular Problems: No High Cholesterol: No Chest Pain: No Congestive Heart Failure: No COPD: No Cerebrovascular Accident: No Diminished Hearing: No Gastrointestinal Disorders: No GERD: No Genitourinary: No Headaches: No Hiatal Hernia: No Hypertension: Yes Kidney Stones: No Musculoskeletal: No Neurologic: No Psychiatric: Yes (SUBSTANCE ABUSE in past) Reproductive: No Respiratory: Yes Immunizations Current: Yes Migraines: No Renal Failure: No Schizophrenia: Yes Seizures: No Sickle Cell Disease: No Sleep Apnea: No Ulcer: No Tetanus Vaccination: Unknown Influenza Vaccination: No PNEUMOCCOCAL Vaccine (Year): 2 Past Surgical History Ear Surgery: Yes (annie tubes) Tympanostomy Tube: Yes Other Surgery: Yes (PE TUBES INSERTED WHEN HE WAS [age] YRS. OLD) Psychiatric History Psychiatric History Long history of polysubstance abuse as well as inpatient admissions at [facility] as an adolescent. Denies any outpatient follow-up as an adult. Hx Psychiatric Treatment: Pt has had multiple admissions usually lasting 24hrs. Pt states he has been b/A 10 times in the past year. History of Inpatient Treatment: Yes Social History Patient is homeless and unemployed. He has family in the area and his son who lives with his mother. Hx Alcohol Use: Yes Hx Tobacco Use: Yes Hx Substance Use: Yes Substance Use Type: Marijuana, Amphetamines-Stimulants, Heroin Other Substances Used: BEGAN USING SUBSTANCES A TEENAGER. HX OF ALCOHOL, BENZOS , K2. Hx of Substance Use Treatment: Yes Allergies-Medications (Allergen,Severity, Reaction): Coded Allergies: penicillin G (Verified Allergy, Mild, Hives, 12/24/17) Per pt, he is allergic to PCN. Reported Meds & Prescriptions Reported Meds & Active Scripts Active Risperidone 0.5 Mg Tab 0.5 Mg PO Q12HR Reported Depakote ER (Divalproex Sodium) 500 Mg Ирина 500 Mg PO DAILY Klonopin (Clonazepam) 1 Mg Tab 1 Mg PO DAILY Risperdal (Risperidone) 4 Mg Tab 4 Mg PO HS Review of Systems Psychiatric: COMPLAINS OF: Suicidal Ideation Except as stated in HPI: all other systems reviewed are Neg Mental Status Examination Appearance: Appropriate Consciousness: Alert Orientation: x4 Motor Activity: Normal gait Speech: Unremarkable Language: Adequate Fund of Knowledge: Adequate Attention and Concentration: Adequate Memory: Unremarkable Mood: Appropriate, Good Affect: Appropriate, Euthymic Thought Process & Associations: Intact, Logical Thought Content: Appropriate Hallucination Type: None Delusion Type: None Suicidal Ideation: Yes Suicidal Plan: Yes (Walk in traffic) Suicidal Intention: No (Future oriented) Homicidal Ideation: No Homicidal Plan: No Homicidal Intention: No Insight: Adequate Judgment: Impulsive MDM Medical Decision Making Medical Record Reviewed: Yes Assessment/Plan This is a 27-year-old single, male who presents voluntarily to this facility requesting detox for polysubstance abuse. Upon examination this morning patient is awake, alert, and oriented 4. His speech is clear, logical , and organized. His mood is good his affect is euthymic. There is no indication of internal stimuli or thought blocking. Initially, he endorses suicide by walking in to the street however, upon further discussion patient expresses a desire to "get clean for my son". He reports that his child is with his parents and that they would like to see him get clean. He denies homicidal ideation, auditory or visual hallucinations. I can elicit no delusional material. Patient had extensive history of HBS as a adolescent but reports that he has not followed up outpatient nor taking medications since aging out. Patient does not meet [facility] nor inpatient admission criteria. Discussed with patient a plan whereby he will present to [facility] to begin outpatient detox. He additionally is provided with the address for [facility] for half-way. Discussed with him that once he has been sober and has a tox screen and indicates so he could get into a sober living facility. Patient further shows is future orientation by relaying that he is already been in touch with [facility]. Patient will be provided with bus passes to get to [facility] as well as the [facility]. He is directed to return to this facility should his condition worsen. Orders Orders Complete Blood Count With Diff (12/24/17 03:26) Comprehensive Metabolic Panel (12/24/17 03:26) Psych Screen (12/24/17 03:26) Drug Screen, Random Urine (12/24/17 03:26) Alcohol (Ethanol) (12/24/17 03:26) Diet Regular Basic (12/24/17 Lunch) Ed Discharge Order (12/24/17 11:35) Results Vital Signs Date Time Temp Pulse Resp B/P (MAP) Pulse Ox O2 Delivery O2 Flow Rate FiO2 12/24/17 02:41 97.4 50 16 177/64 (101) 100 Laboratory Tests Test 12/24/17 03:40 White Blood Count 7.8 Red Blood Count 4.41 Hemoglobin 14.1 Hematocrit 40.7 Mean Corpuscular Volume 92.4 Mean Corpuscular Hemoglobin 32.1 Mean Corpuscular Hemoglobin Concent 34.7 Red Cell Distribution Width 12.9 Platelet Count 269 Mean Platelet Volume 7.7 Neutrophils (%) (Auto) 32.2 Lymphocytes (%) (Auto) 54.0 Monocytes (%) (Auto) 8.5 Eosinophils (%) (Auto) 4.5 Basophils (%) (Auto) 0.8 Neutrophils # (Auto) 2.5 Lymphocytes # (Auto) 4.2 Monocytes # (Auto) 0.7 Eosinophils # (Auto) 0.3 Basophils # (Auto) 0.1 CBC Comment DIFF FINAL Differential Comment Blood Urea Nitrogen 22 Creatinine 1.31 Random Glucose 90 Total Protein 7.1 Albumin 4.0 Calcium Level 8.7 Alkaline Phosphatase 80 Aspartate Amino Transf (AST/SGOT) 17 Alanine Aminotransferase (ALT/SGPT) 27 Total Bilirubin 1.1 Sodium Level 141 Potassium Level 4.0 Chloride Level 105 Carbon Dioxide Level 30.1 Anion Gap 6 Estimat Glomerular Filtration Rate 66 Urine Opiates Screen NEG Urine Barbiturates Screen NEG Urine Amphetamines Screen POS Urine Benzodiazepines Screen NEG Urine Cocaine Screen NEG Urine Cannabinoids Screen POS Ethyl Alcohol Level LESS THAN 3 Diagnosis Primary Impression: Amphetamine-induced mood disorder Ruled Out: Bipolar Psychiatrically Cleared: Yes [facility]: [facility] Patient Instructions: General Instructions Med/ Other Pt Specific Info: No Meds Exist/No RX given Disposition: 01 DISCHARGE HOME Condition: Stable Gerda Lim December 24, 2017 11:52
== END 2017-12-24 12:31 | disposition home or self-care (01) ==
LOC: NEPD 02:34 → NEPJ 12:31
DX: F15.14 Other stimulant abuse with stimulant-induced mood disorder (principal); F17.210 Nicotine dependence, cigarettes, uncomplicated; F20.9 Schizophrenia, unspecified; Z79.899 Other long term (current) drug therapy
CPT/HCPCS: 80053; 80307; 85025; 99283